=== PATIENT | female | born 1960 | race Caucasian/White ===

== ENCOUNTER 2017-03-02 20:50 | Emergency (ER) | payer OTHER, SELFPAY ==
[2017-03-02 20:51] VITALS: BMI 24.7
[2017-03-02 21:12] VITALS: RESP 16; TEMP 98.1
[2017-03-02] MEDS ORDERED: Sodium Chloride 0.9% 1,000 ML IV STA (21:31)
--- NOTE | 2017-03-02 21:36 | ED PDOC ---
HPI: General Adult Time Seen by Provider: 03/02/17 21:19 Chief Complaint (Nursing): Cough, Cold, Congestion Chief Complaint (Provider): Coughing up blood History Per: Patient, Family History/Exam Limitations: no limitations Onset/Duration Of Symptoms: Hrs Have you had recent travel within the past 21 days to any of the following countries: [place], [place], [place] or [place]?: No Current Symptoms Are (Timing): Still Present Additional Complaint(s): 57 yo female with history of colon CA 5 years ago states today she began coughing up blood one hour ago. Pt states she feels nauseous and the blood is making her cough to get it out. Pt reports similar episode 1 week ago which lasted one day. Pt denies abdominal pain, chest pain or SOB. Pt denies NSAID use. Pt denies recent travel or calf pain. No fever/chills. Pt states she has not had any URI symptoms. PT states she was having a routine colonoscopy when she was diagnosed CA and was not having symptoms at the time. Past Medical History Vital Signs: Last Vital Signs Temp 98.1 F 03/02/17 21:09 Pulse 85 03/02/17 21:09 Resp 16 03/02/17 21:09 BP 118/84 03/02/17 21:09 Pulse Ox 96 03/02/17 21:36 - Medical History PMH: Denies: Chronic Kidney Disease - Surgical History Surgical History: Endoscopy - Family History Family History: States: No Known Family Hx - Home Medications Home Medications: Ambulatory Orders Medication Instructions Recorded No Known Home Med 03/03/17 - Allergies Allergies/Adverse Reactions: Allergies Allergy/AdvReac Type Severity Reaction Status Date / Time No Known Allergies Allergy Verified 11/23/15 12:23 - Laboratory Results Result Diagrams: 03/02/17 22:41 03/02/17 22:41 - ECG O2 Sat by Pulse Oximetry: 96 Medical Decision Making Medical Decision Making: CT abdomen, pelvis, chest normal. Copy given to patient. Disposition - Clinical Impression Clinical Impression: Hemoptysis - Patient ED Disposition Is Patient to be Admitted: No Counseled Patient/Family Regarding: Diagnosis, Need For Followup - Disposition Referrals: [facility] [Outside] Disposition: Routine/Home Disposition Time: 01:36 Condition: GOOD Instructions: Hemoptysis (ED) Print Language: LIBERIAN
[2017-03-02 22:43] LABS: HEMATOCRIT 34.7 % (34.0-47.0); MEAN CELL VOLUME 91.8 fl (81.0-99.0); MEAN CORPUSCULAR HEMOGLOBIN 30.3 pg (27.0-31.0); RED CELL DISTRIBUTION WIDTH 13.4 % (11.5-14.5); WHITE BLOOD COUNT 4.9 K/uL (4.8-10.8)
[2017-03-02 22:58] LABS: ALB/GLOB RATIO 1.3 (1.0-2.1); ALKALINE PHOSPHATASE 111 U/L (38-126); ALT/SGPT 28 U/L (9-52); AST/SGOT 24 U/L (14-36); BILIRUBIN,TOTAL 0.4 mg/dl (0.2-1.3); BLOOD UREA NITROGEN 17 mg/dl (7-17); CALCIUM 9.2 mg/dL (8.4-10.2); CARBON DIOXIDE 25 mmol/L (22-30); CHLORIDE 104 mmol/L (98-107); GFR AFRICAN-AMERICAN > 60; GLUCOSE,RANDOM 104 mg/dL (65-105); POTASSIUM 3.9 MMOL/L (3.6-5.0); SODIUM 143 mmol/l (132-148)
[2017-03-02 23:05] LABS: PARTIAL THROMBOPLASTIN TIME 28.2 SECONDS (23.3-32.5)
[2017-03-03] MEDS ORDERED: Iohexol 300 50 ML ONE (00:12)
[2017-03-03] MEDS ORDERED: Sodium Chloride 0.9% 50 ML IV ONE (00:12)
--- NOTE | 2017-03-03 01:11 | CT ---
EXAM: CT Abdomen and Pelvis With Intravenous Contrast CLINICAL HISTORY: 57 years old, female; Signs and symptoms; Other: Coughing blood; Symptoms not specified; Additional info: Hemoptysis. Colon ca TECHNIQUE: Axial computed tomography images of the abdomen and pelvis with intravenous contrast. This CT exam was performed using one or more of the following dose reduction techniques: automated exposure control, adjustment of the mA and/or kV according to patient size, and/or use of iterative reconstruction technique. Coronal and sagittal reformatted images were created and reviewed. CONTRAST: 90 mL of [id number] administered intravenously. COMPARISON: No relevant prior studies available. FINDINGS: Lower thorax: The bilateral lung bases are clear. ABDOMEN: Liver: No acute findings. Gallbladder and bile ducts: The gallbladder is decompressed. No calcified stones. No significant intra- or extrahepatic biliary ductal dilation. Pancreas: Enhances homogeneously. No ductal dilation. No discrete mass. Spleen: No acute findings. Adrenals: No acute findings. Kidneys and ureters: No acute findings. No hydronephrosis or renal calculi. No discrete solid mass. PELVIS: Bladder: No acute findings. Reproductive: No acute findings. Appendix: The air filled appendix is of normal caliber (series 9, image 62) . ABDOMEN and PELVIS: Stomach and bowel: No obstruction. No mucosal thickening. An enteric staple line is identified within the rectum. Peritoneum: No significant fluid collection. No free air. Lymph nodes: No pathologically enlarged lymph nodes. Vasculature: Unremarkable. Bones: No acute fracture. IMPRESSION: Postoperative changes within the colon. Normal appendix. Otherwise unremarkable contrast enhanced CT examination of the abdomen and pelvis, as detailed above. EXAM: CT Chest With Intravenous Contrast CLINICAL HISTORY: 57 years old, female; Signs and symptoms; Other: Coughing blood; Symptoms not specified; Additional info: Hemoptysis. Colon ca TECHNIQUE: Axial computed tomography images of the chest with intravenous contrast. This CT exam was performed using one or more of the following dose reduction techniques: automated exposure control, adjustment of the mA and/or kV according to patient size, and/or use of iterative reconstruction technique. Coronal and sagittal reformatted images were created and reviewed. CONTRAST: 90 mL of [id number] administered intravenously. COMPARISON: CT - ABD PELVIS PO IV CONTRAST 03/14/2016 1:18:36 PM FINDINGS: Irregular vascularity is identified coursing between the superior vena cava to what is likely the left internal mammary vein, extending just under the aortic arch and anterior to the trachea at the level of the zak. Pulmonary arteries: No pulmonary embolism. Aorta: No thoracic aortic aneurysm. Lungs: No mass. No consolidation. Pleural spaces: No significant effusion. No pneumothorax. Heart: No cardiomegaly. No significant pericardial effusion. No evidence of right heart dysfunction. Bones: No acute fracture. Lymph nodes: No pathologically enlarged lymph nodes. IMPRESSION: No pulmonary embolism. Irregular vascularity, between the superior vena cava and the left internal mammary vein, extending under the aortic arch and anterior to the trachea at the level of the zak.
[2017-03-03 01:52] VITALS: BP 125/80; PULSE 75; O2SAT 100
--- NOTE | 2017-03-03 11:14 | RAD ---
HISTORY: hemoptysis COMPARISON: CT chest, abdomen, and pelvis performed 03/03/17, chest x-ray performed 10/12/11 TECHNIQUE: Chest PA and lateral FINDINGS: LUNGS: Mild biapical pleural thickeningNo focal consolidation. Please note that chest x-ray has limited sensitivity for the detection of pulmonary masses. PLEURA: No significant pleural effusion identified. No definite pneumothorax . CARDIOVASCULAR: Heart size appears within normal limits. OSSEOUS STRUCTURES: Scoliosis. VISUALIZED UPPER ABDOMEN: Unremarkable. OTHER FINDINGS: None. IMPRESSION: No focal consolidation, significant pleural effusion, or definite pneumothorax identified.
--- NOTE | 2017-03-03 16:02 | CARD ---
APPROVED REPORT EKG Measurement Heart [id number] <Conclusion> Sinus rhythm with 1st degree AV block Otherwise normal ECG
== END 2017-03-03 01:53 | disposition home or self-care (01) ==
LOC: H.ER 20:50
DX: R04.2 Hemoptysis (principal); C18.9 Malignant neoplasm of colon, unspecified

== ENCOUNTER 2017-03-27 09:46 | Day surgery (SDC) | payer OTHER ==
[2017-03-27] MEDS ORDERED: Lactated Ringer's 500 ML IV ONE (10:10)
[2017-03-27] MEDS ORDERED: Propofol 10 mg/ml Inj (20 ML) ONE (11:09)
[2017-03-27 11:36] VITALS: TEMP 98
[2017-03-27 11:55] VITALS: BP 107/43; PULSE 73; RESP 21; O2SAT 98
== END 2017-03-27 12:41 | disposition home or self-care (01) ==
LOC: H.ENDO 09:46
PROVIDERS: ATTEND Internal Medicine Gastroenterology
DX: K31.9 Disease of stomach and duodenum, unspecified (principal); K92.0 Hematemesis

== ENCOUNTER 2017-04-04 17:49 | Observation (INO) | payer OTHER ==
[2017-04-04] MEDS ORDERED: Sodium Chloride 0.9% 500 ML IV STA (20:28)
[2017-04-04 20:41] LABS: BASO % 0.4 % (0.0-2.0); EOS # 0.1 K/uL (0.0-0.7); EOS % 1.9 % (0.0-4.0); HEMATOCRIT 32.5 % (34.0-47.0); LYMPH # 1.2 K/uL (1.0-4.3); LYMPH % 23.7 % (20.0-40.0); MEAN CORPUSCULAR HEMOGLOBIN 30.3 pg (27.0-31.0); MEAN CORPUSCULAR HGB CONC 33.2 g/dL (33.0-37.0); MEAN PLATELET VOLUME 10.4 fl (7.2-11.7); MONO # 0.4 K/uL (0.0-0.8); MONO % 7.9 % (0.0-10.0); NEUT # 3.2 K/uL (1.8-7.0); NEUT % 66.1 % (50.0-75.0); RED CELL DISTRIBUTION WIDTH 12.9 % (11.5-14.5); WHITE BLOOD COUNT 4.9 K/uL (4.8-10.8)
[2017-04-04 20:57] LABS: ALB/GLOB RATIO 1.5 (1.0-2.1); ALKALINE PHOSPHATASE 72 U/L (38-126); ALT/SGPT 29 U/L (9-52); AST/SGOT 26 U/L (14-36); BILIRUBIN,TOTAL 1.3 mg/dl (0.2-1.3); BLOOD UREA NITROGEN 8 mg/dl (7-17); CALCIUM 9.1 mg/dL (8.4-10.2); CARBON DIOXIDE 23 mmol/L (22-30); CHLORIDE 93 mmol/L (98-107); GFR AFRICAN-AMERICAN > 60; GLUCOSE,RANDOM 110 mg/dL (65-105); LIPASE 48 U/L (23-300); MAGNESIUM 2.1 MG/DL (1.6-2.3); PHOSPHOROUS 4.3 mg/dl (2.5-4.5); POTASSIUM 3.6 MMOL/L (3.6-5.0); SODIUM 128 mmol/l (132-148); TOTAL PROTEIN 7.5 G/DL (6.3-8.2)
[2017-04-04 21:45] LABS: PARTIAL THROMBOPLASTIN TIME 29.7 SECONDS (23.3-32.5)
--- NOTE | 2017-04-04 22:28 | ED PDOC ---
HPI:Nausea, Vomiting, Diarrhea Time Seen by Provider: 04/04/17 19:52 Chief Complaint (Nursing): Abdominal Pain Chief Complaint (Provider): vomiting History Per: Patient History/Exam Limitations: no limitations Onset/Duration Of Symptoms: Days (1) Current Symptoms Are (Timing): Still Present Associated Symptoms: Chills, Nausea (started 2 days ago), Vomiting (4 times nonbloody nonbilious), Loss Of Appetite, Chest Pain. denies: Fever, Diarrhea, Back Pain, Constipation, Urinary Symptoms Exacerbating Factors: None Alleviating Factors: None Additional Complaint(s): Pt reports nausea for 2 days. then started vomiting today. Nonbilious nonbloody. NO diarrhea. Taking only meds for constipation. +epigastric pain Had endoscopy 1 week ago and does not know results. Past Medical History Reviewed: Historical Data, Nursing Documentation, Vital Signs Vital Signs: Last Vital Signs Temp 97.8 F 04/04/17 19:16 Pulse 65 04/04/17 19:16 Resp 16 04/04/17 19:16 BP 134/70 04/04/17 19:16 Pulse Ox 100 04/04/17 19:16 - Medical History PMH: Gastritis Denies: Chronic Kidney Disease Other PMH: Colon ca, completed treatment 5 years ago - Surgical History Surgical History: Endoscopy Other surgeries: Partial colon surgery - Family History Family History: States: Hypertension - Social History Current smoker - smoking cessation education provided: No Alcohol: None - Home Medications Home Medications: Ambulatory Orders Medication Instructions Recorded No Known Home Med 03/03/17 - Allergies Allergies/Adverse Reactions: Allergies Allergy/AdvReac Type Severity Reaction Status Date / Time No Known Allergies Allergy Verified 04/04/17 19:15 Review of Systems ROS Statement: Except As Marked, All Systems Reviewed And Found Negative (and as per HPI) Constitutional: Positive for: Chills, Weakness. Negative for: Fever Respiratory: Positive for: SOB with Exertion Gastrointestinal: Positive for: Nausea, Vomiting, Abdominal Pain. Negative for : Diarrhea, Constipation, Melena, Hematochezia, Hematemesis Genitourinary Female: Negative for: Dysuria, Hematuria Skin: Positive for: Other (pale) Physical Exam - Reviewed Nursing Documentation Reviewed: Yes Vital Signs Reviewed: Yes - Physical Exam Appears: Positive for: Non-toxic, Uncomfortable, In Acute Distress (mild painful ) Head Exam: Positive for: ATRAUMATIC, NORMOCEPHALIC Skin: Positive for: Warm, Dry, Pallor Eye Exam: Positive for: EOMI, PERRL ENT: Positive for: Other (tacky muc memb). Negative for: Pharyngeal Erythema, Tonsillar Exudate Neck: Positive for: Painless ROM, Supple Cardiovascular/Chest: Positive for: Regular Rate, Rhythm. Negative for: Murmur Respiratory: Positive for: Normal Breath Sounds. Negative for: Wheezing Gastrointestinal/Abdominal: Positive for: Bowel Sounds, Soft, Tenderness ( epigastric). Negative for: Mass, Distended, Guarding, Rebound Back: Positive for: Normal Inspection. Negative for: Vertebral Tenderness Extremity: Positive for: Normal ROM. Negative for: Pedal Edema Lymphatic: Negative for: Adenopathy Neurologic/Psych: Positive for: Alert. Negative for: Motor/Sensory Deficits - Laboratory Results Result Diagrams: 04/04/17 20:30 04/04/17 20:30 - ECG ECG: Positive for: Interpreted By Me ECG Rhythm: Positive for: Normal QRS, Normal ST Segment, Sinus Rhythm O2 Sat by Pulse Oximetry: 100 Pulse Ox Interpretation: Normal - Other Rad Obs series X-Ray: Interpreted by Me (NSBGP, no dilated bowel) - Progress ED Course And Treament: Reviewed recent endoscopy report (03/27) "Impression: Normal esophagus. Erythematous mucosa in the antrum. Biopsied. Normal examined duodenum." Reviewed pathology report of biopsy "Final diagnosis. Biopsy antrum. Gastic mucosa shows mild chronic gastritis. Immunostain for Helicobacter pylori is negative." Pt's lab demonstrated moderate hyponatremia. Pt to be hospitalizaed for continued IVF and bowel rest. Disposition - Clinical Impression Clinical Impression: Vomiting, Hyponatremia Discussed With : Kimberly Jose Doctor Will See Patient In The: ED Counseled Patient/Family Regarding: Studies Performed, Diagnosis - Disposition Disposition Time: 22:30 Condition: GUARDED - Pt Status Changed To: Hospital Disposition Of: Observation - POA Present On Arrival: None
--- NOTE | 2017-04-04 23:10 | CP.PCM.HP ---
<Kimberly Jose - Last Filed: 04/05/17 05:55> History of Present Illness - History of Present Illness History of Present Illness: 57yo F with PMHx colon ca (s/p colectomy) and GERD admitted for hyponatremia and nausea/vomiting. nausea/vomiting x2 days, NB/NB vomitus 4x daily, decreased PO intake, a/w epigastric pain. Denies fever, chills, constipation, diarrhea. Last BM today, denies hematochezia. No new food, no sick contacts, no trigger. PMHx: as above SHx: colectomy 5 years ago Allergies: NKDA Social hx: denies smoking, EtOH, drugs FHx: NC Meds: checked in [facility] and with pt PCP: Dr. Flower ED course: VSS, no tachycardia, afebrile CBC, no leukocytosis CMP, Na 128 lipase WNL troponin WNL EKG Abd Xray - stool (my interp) zofran 8mg IV pepcid 20mg IV NS 500cc bolus Present on Admission - Present on Admission Any Indicators Present on Admission: No Review of Systems - Constitutional Constitutional: absent: Chills, Fever - Cardiovascular Cardiovascular: absent: Chest Pain - Respiratory Respiratory: absent: Dyspnea - Gastrointestinal Gastrointestinal: Abdominal Pain (epigastric), Nausea, Vomiting. absent: Constipation, Diarrhea, Hematemesis, Hematochezia - Genitourinary Genitourinary: absent: Dysuria, Hematuria - Musculoskeletal Musculoskeletal: absent: Back Pain - Neurological Neurological: absent: Headaches Past Patient History - Past Medical History & Family History Past Medical History?: Yes - Past Social History Smoking Status: Never Smoked Alcohol: None Drugs: Denies - CARDIAC Hx Cardiac Disorders: No - PULMONARY Hx Respiratory Disorders: No - NEUROLOGICAL Hx Neurological Disorder: No - HEENT Hx HEENT Problems: No - RENAL Hx Chronic Kidney Disease: No - ENDOCRINE/METABOLIC Hx Endocrine Disorders: No - HEMATOLOGICAL/ONCOLOGICAL Hx Cancer: Yes (CHEMO) - INTEGUMENTARY Hx Dermatological Problems: No - MUSCULOSKELETAL/RHEUMATOLOGICAL Hx Musculoskeletal Disorders: No - GASTROINTESTINAL Hx Gastrointestinal Disorders: Yes - GENITOURINARY/GYNECOLOGICAL Hx Genitourinary Disorders: No - PSYCHIATRIC Hx Psychophysiologic Disorder: No Hx Emotional Abuse: No Hx Physical Abuse: No - SURGICAL HISTORY Other/Comment: COLON RESECTION - ANESTHESIA Hx Anesthesia: Yes Hx Anesthesia Reactions: No Hx Malignant Hyperthermia: No Meds Allergies/Adverse Reactions: Allergies Allergy/AdvReac Type Severity Reaction Status Date / Time No Known Allergies Allergy Verified 04/04/17 19:15 Physical Exam - Head Exam Head Exam: ATRAUMATIC, NORMAL INSPECTION - Eye Exam Eye Exam: Normal appearance - ENT Exam ENT Exam: Mucous Membranes Dry - Neck Exam Neck exam: Positive for: Normal Inspection - Respiratory Exam Respiratory Exam: Clear to Auscultation Bilateral - Cardiovascular Exam Cardiovascular Exam: REGULAR RHYTHM - GI/Abdominal Exam GI & Abdominal Exam: Distended, Soft, Tenderness (epigastric). absent: Guarding , Organomegaly, Rigid - Extremities Exam Extremities exam: Positive for: normal inspection. Negative for: pedal edema - Back Exam Back exam: NORMAL INSPECTION - Neurological Exam Neurological exam: Alert, Oriented x3 - Skin Skin Exam: Dry, Warm Results - Vital Signs Recent Vital Signs: Last Vital Signs Temp 97.8 F 04/04/17 19:16 Pulse 65 04/04/17 19:16 Resp 16 04/04/17 19:16 BP 134/70 04/04/17 19:16 Pulse Ox 100 04/04/17 22:28 - Labs Result Diagrams: 04/04/17 20:30 04/04/17 20:30 Assessment & Plan - Assessment and Plan (Free Text) Assessment: 57yo F with PMHx colon ca (s/p colectomy) and GERD admitted for hyponatremia and nausea/vomiting. nausea/vomiting -no tachycardia, afebrile, no leukocytosis -Abd Xray - stool (my interp) -zofran 4mg IV q6hr -pepcid 20mg IV daily -MIVF NS 125cc/hr -advance diet as tolerated hyponatremia -Na+ 128 -MIVF NS 125cc/hr -increase Na+ by <6mEq in 24hr DVT ppx -lovenox Decision To Admit - Pt Status Changed To: Hospital Disposition Of: Observation - . Bed Request Type: Telemetry Admitting Physician: Lissa Roper <Lissa Roper - Last Filed: 04/05/17 09:16> Results - Vital Signs Recent Vital Signs: Last Vital Signs Temp 97.4 F L 04/05/17 08:00 Pulse 70 04/05/17 08:00 Resp 16 04/05/17 08:00 BP 104/62 04/05/17 08:00 Pulse Ox 98 04/05/17 08:00 - Labs Result Diagrams: 04/05/17 06:00 04/05/17 06:20 Labs: Laboratory Results - last 24 hr 04/05/17 04/05/17 06:00 06:20 WBC 3.8 L RBC 3.76 L Hgb 11.5 L Hct 34.5 MCV 91.7 MCH 30.5 MCHC 33.3 RDW 13.1 Plt Count 181 MPV 10.2 Neut % (Auto) 62.1 Lymph % (Auto) 26.1 [place] % (Auto) 8.4 Eos % (Auto) 3.1 Baso % (Auto) 0.3 Neut # 2.4 Lymph # 1.0 [place] # 0.3 Eos # 0.1 Baso # 0.0 Sodium 140 Potassium 4.1 Chloride 106 Carbon Dioxide 25 Anion Gap 14 BUN 6 L Creatinine 0.6 L Est GFR ( Amer) > 60 Est GFR (Non-Af Amer) > 60 Random Glucose 95 Calcium 9.1 Total Bilirubin 1.1 AST 22 ALT 24 Alkaline Phosphatase 67 Total Protein 7.0 Albumin 4.1 Globulin 2.9 Albumin/Globulin Ratio 1.4 Assessment & Plan - Assessment and Plan (Free Text) Assessment: ATTENDING NOTE/ ATTESTATION STATEMENT Case discussed with resident. Chart reviewed. Agree with plan - rehydrate, zofran. Admit to OBS. status, reevaluate in AM
[2017-04-04 23:24] VITALS: BMI 25.1
[2017-04-04] MEDS: Sodium Chloride 0.9% 1,000 ML IV SCH (23:41)
[2017-04-05] MEDS: Sodium Chloride 0.9% 1,000 ML IV SCH (06:20)
[2017-04-05 07:51] LABS: ALB/GLOB RATIO 1.4 (1.0-2.1); ALKALINE PHOSPHATASE 67 U/L (38-126); ALT/SGPT 24 U/L (9-52); AST/SGOT 22 U/L (14-36); BILIRUBIN,TOTAL 1.1 mg/dl (0.2-1.3); BLOOD UREA NITROGEN 6 mg/dl (7-17); CALCIUM 9.1 mg/dL (8.4-10.2); CARBON DIOXIDE 25 mmol/L (22-30); CHLORIDE 106 mmol/L (98-107); GFR AFRICAN-AMERICAN > 60; GLUCOSE,RANDOM 95 mg/dL (65-105); POTASSIUM 4.1 MMOL/L (3.6-5.0); SODIUM 140 mmol/l (132-148)
[2017-04-05 08:01] VITALS: O2SAT 98
[2017-04-05 08:48] LABS: BASO % 0.3 % (0.0-2.0); EOS # 0.1 K/uL (0.0-0.7); EOS % 3.1 % (0.0-4.0); HEMATOCRIT 34.5 % (34.0-47.0); LYMPH % 26.1 % (20.0-40.0); MEAN CELL VOLUME 91.7 fl (81.0-99.0); MEAN CORPUSCULAR HEMOGLOBIN 30.5 pg (27.0-31.0); MEAN CORPUSCULAR HGB CONC 33.3 g/dL (33.0-37.0); MEAN PLATELET VOLUME 10.2 fl (7.2-11.7); MONO # 0.3 K/uL (0.0-0.8); MONO % 8.4 % (0.0-10.0); NEUT # 2.4 K/uL (1.8-7.0); NEUT % 62.1 % (50.0-75.0); NRBC % 0.1 % (0.0-0.0); RED CELL DISTRIBUTION WIDTH 13.1 % (11.5-14.5); WHITE BLOOD COUNT 3.8 K/uL (4.8-10.8)
[2017-04-05] MEDS ORDERED: Enoxaparin 40 mg Syringe SC SCH (09:00)
--- NOTE | 2017-04-05 09:57 | RAD ---
PROCEDURE: Radiographs of the chest and abdomen (obstructive series) HISTORY: abd pain r/o sbo COMPARISON: CT chest, abdomen, and pelvis performed 03/03/17 TECHNIQUE: AP radiograph of the chest, with upright and supine radiographs of the abdomen. FINDINGS: CHEST: Cardiomediastinal silhouette appears within normal limits of size. No focal consolidation, significant pleural effusion, or definite pneumothorax identified.Please note that chest x-ray has limited sensitivity for the detection of pulmonary masses. Marked scoliosis of the thoracic spine convex to the right. ABDOMEN AND PELVIS: Nonspecific bowel gas pattern without findings to suggest obstruction. Bowel anastomotic suture material within the pelvis. Mild constipation. No acute osseous abnormality is detected. IMPRESSION: Mild constipation.
--- NOTE | 2017-04-05 12:44 | CP.PCM.DIS ---
<Lora Keane - Last Filed: 04/05/17 19:56> Provider - Provider Date of Admission: 04/04/17 22:21 Attending physician: Trina Alan MD Time Spent in preparation of Discharge (in minutes): 30 Diagnosis - Discharge Diagnosis (1) Hyponatremia Status: Acute Comment: resolved. (2) Gastritis Status: Acute Comment: pepcid BID. zofran PRN nauseas. F/U as outpatient. Hospital Course - Lab Results Lab Results: Most Recent Lab Values WBC 3.8 K/uL (4.8-10.8) L 04/05/17 06:00 RBC 3.76 Mil/uL (3.80-5.20) L 04/05/17 06:00 Hgb 11.5 g/dL (12.0-16.0) L 04/05/17 06:00 Hct 34.5 % (34.0-47.0) 04/05/17 06:00 MCV 91.7 fl (81.0-99.0) 04/05/17 06:00 MCH 30.5 pg (27.0-31.0) 04/05/17 06:00 MCHC 33.3 g/dL (33.0-37.0) 04/05/17 06:00 RDW 13.1 % (11.5-14.5) 04/05/17 06:00 Plt Count 181 K/uL (130-400) 04/05/17 06:00 MPV 10.2 fl (7.2-11.7) 04/05/17 06:00 Neut % (Auto) 62.1 % (50.0-75.0) 04/05/17 06:00 Lymph % (Auto) 26.1 % (20.0-40.0) 04/05/17 06:00 [place] % (Auto) 8.4 % (0.0-10.0) 04/05/17 06:00 Eos % (Auto) 3.1 % (0.0-4.0) 04/05/17 06:00 Baso % (Auto) 0.3 % (0.0-2.0) 04/05/17 06:00 Neut # 2.4 K/uL (1.8-7.0) 04/05/17 06:00 Lymph # 1.0 K/uL (1.0-4.3) 04/05/17 06:00 [place] # 0.3 K/uL (0.0-0.8) 04/05/17 06:00 Eos # 0.1 K/uL (0.0-0.7) 04/05/17 06:00 Baso # 0.0 K/uL (0.0-0.2) 04/05/17 06:00 PT 10.7 SECONDS (9.6-11.2) 04/04/17 20:30 INR 1.03 (0.92-1.08) 04/04/17 20:30 APTT 29.7 SECONDS (23.3-32.5) 04/04/17 20:30 Sodium 140 mmol/l (132-148) 04/05/17 06:20 Potassium 4.1 MMOL/L (3.6-5.0) 04/05/17 06:20 Chloride 106 mmol/L (98-107) 04/05/17 06:20 Carbon Dioxide 25 mmol/L (22-30) 04/05/17 06:20 Anion Gap 14 (10-20) 04/05/17 06:20 BUN 6 mg/dl (7-17) L 04/05/17 06:20 Creatinine 0.6 mg/dL (0.7-1.2) L 04/05/17 06:20 Est GFR ( Amer) > 60 04/05/17 06:20 Est GFR (Non-Af Amer) > 60 04/05/17 06:20 Random Glucose 95 mg/dL (65-105) 04/05/17 06:20 Calcium 9.1 mg/dL (8.4-10.2) 04/05/17 06:20 Phosphorus 4.3 mg/dl (2.5-4.5) 04/04/17 20:30 Magnesium 2.1 MG/DL (1.6-2.3) 04/04/17 20:30 Total Bilirubin 1.1 mg/dl (0.2-1.3) 04/05/17 06:20 AST 22 U/L (14-36) 04/05/17 06:20 ALT 24 U/L (9-52) 04/05/17 06:20 Alkaline Phosphatase 67 U/L (38-126) 04/05/17 06:20 Troponin I < 0.0120 ng/mL (0.00-0.120) 04/04/17 20:30 Total Protein 7.0 G/DL (6.3-8.2) 04/05/17 06:20 Albumin 4.1 g/dL (3.5-5.0) 04/05/17 06:20 Globulin 2.9 gm/dL (2.2-3.9) 04/05/17 06:20 Albumin/Globulin Ratio 1.4 (1.0-2.1) 04/05/17 06:20 Lipase 48 U/L (23-300) 04/04/17 20:30 - Hospital Course Hospital Course: 57yo F with PMHx colon ca (s/p colectomy) and GERD admitted for hyponatremia and nausea/vomiting. nausea/vomiting x2 days, NB/NB vomitus 4x daily, decreased PO intake, a/w burning epigastric pain. Pt was treated w/ IV fluids, pepcid and zofran, feeling better today, no more vomits, hyponatremia resolved. will d/c patient home w/ Pepcid, F/U w/ PMD in 1-2 weeks. ER precautions given to pt. Pt had an elective EGD last week: Pathology results reviewed: mild chronic gastritis, no H.Pylori. Discharge Exam - Head Exam Head Exam: ATRAUMATIC, NORMAL INSPECTION - Additional Findings Additional findings: - Head Exam Head Exam: ATRAUMATIC, NORMAL INSPECTION - Eye Exam Eye Exam: Normal appearance - ENT Exam ENT Exam: Mucous Membranes Dry - Neck Exam Neck exam: Positive for: Normal Inspection - Respiratory Exam Respiratory Exam: Clear to Auscultation Bilateral - Cardiovascular Exam Cardiovascular Exam: REGULAR RHYTHM - GI/Abdominal Exam GI & Abdominal Exam: Distended, Soft, Tenderness (epigastric). absent: Guarding , Organomegaly, Rigid - Extremities Exam Extremities exam: Positive for: normal inspection. Negative for: pedal edema - Back Exam Back exam: NORMAL INSPECTION - Neurological Exam Neurological exam: Alert, Oriented x3 - Skin Skin Exam: Dry, Warm Discharge Plan - Discharge Medications Prescriptions: Famotidine [Pepcid] 20 mg PO BID #40 tab Ondansetron HCl [Zofran] 4 mg PO Q6 PRN #15 tablet PRN Reason: Nausea/Vomiting - Follow Up Plan Condition: GUARDED Disposition: HOME/ ROUTINE Instructions: Dehydration (DC), Hyponatremia (DC) Additional Instructions: F/U with PMD in 1-2 weeks. ER precautions given to pt. Pt verbalized understanding. <Lissa Roper - Last Filed: 04/06/17 08:50> Provider - Provider Date of Admission: 04/04/17 22:21 Attending physician: Trina Alan MD Hospital Course - Lab Results Lab Results: Most Recent Lab Values WBC 3.8 K/uL (4.8-10.8) L 04/05/17 06:00 RBC 3.76 Mil/uL (3.80-5.20) L 04/05/17 06:00 Hgb 11.5 g/dL (12.0-16.0) L 04/05/17 06:00 Hct 34.5 % (34.0-47.0) 04/05/17 06:00 MCV 91.7 fl (81.0-99.0) 04/05/17 06:00 MCH 30.5 pg (27.0-31.0) 04/05/17 06:00 MCHC 33.3 g/dL (33.0-37.0) 04/05/17 06:00 RDW 13.1 % (11.5-14.5) 04/05/17 06:00 Plt Count 181 K/uL (130-400) 04/05/17 06:00 MPV 10.2 fl (7.2-11.7) 04/05/17 06:00 Neut % (Auto) 62.1 % (50.0-75.0) 04/05/17 06:00 Lymph % (Auto) 26.1 % (20.0-40.0) 04/05/17 06:00 [place] % (Auto) 8.4 % (0.0-10.0) 04/05/17 06:00 Eos % (Auto) 3.1 % (0.0-4.0) 04/05/17 06:00 Baso % (Auto) 0.3 % (0.0-2.0) 04/05/17 06:00 Neut # 2.4 K/uL (1.8-7.0) 04/05/17 06:00 Lymph # 1.0 K/uL (1.0-4.3) 04/05/17 06:00 [place] # 0.3 K/uL (0.0-0.8) 04/05/17 06:00 Eos # 0.1 K/uL (0.0-0.7) 04/05/17 06:00 Baso # 0.0 K/uL (0.0-0.2) 04/05/17 06:00 PT 10.7 SECONDS (9.6-11.2) 04/04/17 20:30 INR 1.03 (0.92-1.08) 04/04/17 20:30 APTT 29.7 SECONDS (23.3-32.5) 04/04/17 20:30 Sodium 140 mmol/l (132-148) 04/05/17 06:20 Potassium 4.1 MMOL/L (3.6-5.0) 04/05/17 06:20 Chloride 106 mmol/L (98-107) 04/05/17 06:20 Carbon Dioxide 25 mmol/L (22-30) 04/05/17 06:20 Anion Gap 14 (10-20) 04/05/17 06:20 BUN 6 mg/dl (7-17) L 04/05/17 06:20 Creatinine 0.6 mg/dL (0.7-1.2) L 04/05/17 06:20 Est GFR ( Amer) > 60 04/05/17 06:20 Est GFR (Non-Af Amer) > 60 04/05/17 06:20 Random Glucose 95 mg/dL (65-105) 04/05/17 06:20 Calcium 9.1 mg/dL (8.4-10.2) 04/05/17 06:20 Phosphorus 4.3 mg/dl (2.5-4.5) 04/04/17 20:30 Magnesium 2.1 MG/DL (1.6-2.3) 04/04/17 20:30 Total Bilirubin 1.1 mg/dl (0.2-1.3) 04/05/17 06:20 AST 22 U/L (14-36) 04/05/17 06:20 ALT 24 U/L (9-52) 04/05/17 06:20 Alkaline Phosphatase 67 U/L (38-126) 04/05/17 06:20 Troponin I < 0.0120 ng/mL (0.00-0.120) 04/04/17 20:30 Total Protein 7.0 G/DL (6.3-8.2) 04/05/17 06:20 Albumin 4.1 g/dL (3.5-5.0) 04/05/17 06:20 Globulin 2.9 gm/dL (2.2-3.9) 04/05/17 06:20 Albumin/Globulin Ratio 1.4 (1.0-2.1) 04/05/17 06:20 Lipase 48 U/L (23-300) 04/04/17 20:30 - Hospital Course Hospital Course: ATTENDING NOTE/ ATTESTATION Patient seen and examined. case discussed with resident. Agree with plan, discharge on meds to outpatient follow up.
[2017-04-05 12:48] VITALS: BP 98/63; PULSE 63; RESP 18; TEMP 98.2
--- NOTE | 2017-04-05 13:25 | CARD ---
APPROVED REPORT EKG Measurement Heart [id number] NM [id number] <Conclusion> Sinus bradycardia with 1st degree AV block RSR' or QR pattern in V1 suggests right ventricular conduction delay Borderline ECG
== END 2017-04-05 13:14 | disposition home or self-care (01) ==
LOC: H.ER 17:49 → H.ERHOLD 22:21 → H.TEL 04-05 01:02
PROVIDERS: ADMIT Family Medicine Geriatric Medicine; ATTEND Family Medicine Geriatric Medicine
DX: E87.1 Hypo-osmolality and hyponatremia (principal); K21.9 Gastro-esophageal reflux disease without esophagitis; K29.50 Unspecified chronic gastritis without bleeding; K59.00 Constipation, unspecified; Z85.038 Personal history of other malignant neoplasm of large intestine

== ENCOUNTER 2018-04-23 11:52 | Day surgery (SDC) | payer OTHER ==
[2018-04-23] MEDS ORDERED: Lactated Ringer's 500 ML IV ONE (13:28)
[2018-04-23 13:45] VITALS: O2SAT 100
[2018-04-23] MEDS ORDERED: Propofol 10 mg/ml Inj (20 ML) ONE (15:17)
[2018-04-23 15:44] VITALS: TEMP 97
[2018-04-23 15:56] VITALS: BP 94/49; PULSE 58; RESP 18
== END 2018-04-23 16:17 | disposition home or self-care (01) ==
LOC: H.ENDO 11:52
PROVIDERS: ATTEND Internal Medicine Gastroenterology
DX: K62.5 Hemorrhage of anus and rectum (principal); D12.5 Benign neoplasm of sigmoid colon; D12.3 Benign neoplasm of transverse colon; D12.2 Benign neoplasm of ascending colon; K63.89 Other specified diseases of intestine
CPT/HCPCS: 45380; J2001; J2704; J7120

== ENCOUNTER 2018-08-24 18:55 | Emergency (ER) | payer SELFPAY ==
[2018-08-24 18:55] VITALS: BMI 25.1
[2018-08-24 19:06] VITALS: BP 116/66; PULSE 86; RESP 18; TEMP 99.2; O2SAT 100
[2018-08-24] MEDS ORDERED: Sodium Chloride 0.9% 1,000 ML IV STA (20:56)
[2018-08-24] MEDS ORDERED: Albuterol-Ipratrop 3 mg / 0.5 (3 ml) UD IH STA (20:56)
--- NOTE | 2018-08-24 21:00 | ED PDOC ---
HPI: CCC, URI, Sore Throat Time Seen by Provider: 08/24/18 20:45 Chief Complaint (Nursing): Cough, Cold, Congestion Chief Complaint (Provider): cough History Per: Patient, Family (son) History/Exam Limitations: no limitations Onset/Duration Of Symptoms: Days (1 week) Current Symptoms Are (Timing): Still Present Additional Complaint(s): 58 y/o female presents for evaluation of persistent cough x 1 week. Associated white sputum production. Patient reports back pain from excessive coughing, and today with post-tussive vomiting episodes. Denies fever, headache, dizziness, chest pain, shortness of breath, palpitations, leg pain/swelling, recent travel. Son sick with similar Past Medical History Reviewed: Historical Data, Nursing Documentation, Vital Signs Vital Signs: Last Vital Signs Temp 99.2 F 08/24/18 19:02 Pulse 86 08/24/18 19:02 Resp 18 08/24/18 19:02 BP 116/66 08/24/18 19:02 Pulse Ox 100 08/24/18 19:02 - Medical History PMH: Gastritis, Malignancy (colon CA) Denies: HIV, Chronic Kidney Disease - Surgical History Surgical History: Endoscopy - Family History Family History: States: Hypertension - Home Medications Home Medications: Ambulatory Orders Medication Instructions Recorded Esomeprazole Magnesium [Nexium] 20 mg PO DAILY 04/23/18 Albuterol HFA [Ventolin HFA 90 1 puff IH Q4 PRN #1 inh 08/24/18 mcg/actuation (8 g)] Azithromycin [Zithromax] 250 mg PO DAILY #1 packet 08/24/18 Fluticasone Nasal [Flonase] 1 actuation NS BID #1 bottle 08/24/18 Prednisone 50 mg PO DAILY #4 tablet 08/24/18 Promethazine HCl/Codeine 5 ml PO Q8 PRN #50 ml 08/24/18 [Prometh-Codein 6.25-10 mg/5 ml] - Allergies Allergies/Adverse Reactions: Allergies Allergy/AdvReac Type Severity Reaction Status Date / Time No Known Allergies Allergy Verified 04/04/17 19:15 Review of Systems ROS Statement: Except As Marked, All Systems Reviewed And Found Negative Respiratory: Positive for: Cough Gastrointestinal: Positive for: Vomiting Physical Exam - Reviewed Nursing Documentation Reviewed: Yes Vital Signs Reviewed: Yes - Physical Exam Appears: Positive for: Well, Non-toxic, Uncomfortable (actively coughing) Head Exam: Positive for: ATRAUMATIC, NORMAL INSPECTION, NORMOCEPHALIC Skin: Positive for: Normal Color Eye Exam: Positive for: Normal appearance ENT: Positive for: Normal ENT Inspection Cardiovascular/Chest: Positive for: Regular Rate, Rhythm Respiratory: Positive for: Normal Breath Sounds Gastrointestinal/Abdominal: Positive for: Normal Exam Back: Positive for: Normal Inspection Extremity: Positive for: Normal ROM Neurologic/Psych: Positive for: Alert, Oriented (x3) - Laboratory Results Result Diagrams: 08/24/18 21:16 08/24/18 21:16 - ECG O2 Sat by Pulse Oximetry: 100 - Radiology X-Ray: Viewed By Nd X-Ray Interpretation: No Acute Disease - Progress ED Course And Treament: labs, chest xray, IV fluids, IV zofran, IV solumedro, duonebs On re-eval, patient states cough improved. Patient educated on findings, discharged with rx zpak, flonase, promethazine with codeine, albuterol hfa Advised fluids, rest Follow up PMD 2-3 days Return precautions given Disposition - Clinical Impression Clinical Impression: Bronchitis - Patient ED Disposition Is Patient to be Admitted: No Counseled Patient/Family Regarding: Studies Performed, Diagnosis, Need For Followup, Rx Given - Disposition Disposition: Routine/Home Disposition Time: 23:11 Condition: IMPROVED Prescriptions: Albuterol HFA [Ventolin HFA 90 mcg/actuation (8 g)] 1 puff IH Q4 PRN #1 inh PRN Reason: Wheezing Azithromycin [Zithromax] 250 mg PO DAILY #1 packet Fluticasone Nasal [Flonase] 1 actuation NS BID #1 bottle Prednisone 50 mg PO DAILY #4 tablet Promethazine HCl/Codeine [Prometh-Codein 6.25-10 mg/5 ml] 5 ml PO Q8 PRN #50 ml PRN Reason: Cough Instructions: Acute Bronchitis Print Language: [id number]
[2018-08-24 21:19] LABS: BASO # 0.1 K/uL (0.0-0.2); BASO % 0.6 % (0.0-2.0); EOS # 0.1 K/uL (0.0-0.7); HEMOGLOBIN 10.6 g/dL (12.0-16.0); LYMPH # 0.9 K/uL (1.0-4.3); LYMPH % 8.2 % (20.0-40.0); MEAN CELL VOLUME 91.2 fl (81.0-99.0); MEAN CORPUSCULAR HEMOGLOBIN 30.5 pg (27.0-31.0); MEAN CORPUSCULAR HGB CONC 33.4 g/dL (33.0-37.0); MEAN PLATELET VOLUME 8.6 fl (7.2-11.7); MONO # 0.7 K/uL (0.0-0.8); MONO % 6.2 % (0.0-10.0); NEUT # 9.5 K/uL (1.8-7.0); PLATELET COUNT 256 K/uL (130-400); RBC 3.47 Mil/uL (3.80-5.20); RED CELL DISTRIBUTION WIDTH 13.4 % (11.5-14.5); WHITE BLOOD COUNT 11.3 K/uL (4.8-10.8)
[2018-08-24] MEDS ORDERED: Albuterol-Ipratrop 3 mg / 0.5 (3 ml) UD ONE (21:37)
[2018-08-24 21:45] LABS: ALB/GLOB RATIO 1.1 (1.0-2.1); ALBUMIN 4.2 g/dL (3.5-5.0); ALT/SGPT 18 U/L (9-52); AST/SGOT 33 U/L (14-36); BLOOD UREA NITROGEN 7 mg/dl (7-17); CALCIUM 9.1 mg/dL (8.4-10.2); GFR NON-AFRICAN AMERICAN > 60
[2018-08-24 22:46] LABS: BANDS 3 % (0-2); BASOPHIL 1 % (0-2); EOSINOPHIL 1 % (0-7); LYMPHOCYTE 12 % (20-50); MONOCYTE 8 % (0-10); NEUTROPHIL 75 % (42-75); TOTAL CELLS COUNTED 100
[2018-08-24 22:47] LABS: ANISOCYTOSIS SLIGHT; PLATELET ESTIMATE NORMAL (NORMAL); POIKILOCYTOSIS SLIGHT; POLYCHROMIC SLIGHT
[2018-08-24] MEDS ORDERED: Promethazine/Cod 6.25mg-10mg/5ml Syr UD PO STA (23:07)
[2018-08-24] MEDS ORDERED: Promethazine/Cod 6.25mg-10mg/5ml Syr UD ONE (23:25)
--- NOTE | 2018-08-25 09:44 | RAD ---
Date of service: 08/24/2018 HISTORY: cough COMPARISON: Chest radiographs 03/02/2017. TECHNIQUE: Chest PA and lateral FINDINGS: LUNGS: Borderline patchy density is question in the frontal view of the right base but is not seen in the lateral projection raising question of potential early infiltrate though this is not definite. Remaining lung fatima appear clear. PLEURA: No significant pleural effusion identified. No pneumothorax apparent. CARDIOVASCULAR: Normal. OSSEOUS STRUCTURES: Dextroscoliotic thoracic spinal deformity reiterated. VISUALIZED UPPER ABDOMEN: Normal. OTHER FINDINGS: None. IMPRESSION: Potential early infiltrate right base with remaining lung fatima otherwise clear. No acute cardiovascular changes. Scoliotic spinal deformity reiterated.
== END 2018-08-24 23:19 | disposition home or self-care (01) ==
LOC: H.ER 18:55
DX: J40 Bronchitis, not specified as acute or chronic (principal); Z85.038 Personal history of other malignant neoplasm of large intestine
CPT/HCPCS: 71046; 80053; 85025; 87804; 94640; 96361; 96374; 96375; 99283; J2405; J2930; J7030

== ENCOUNTER 2018-10-28 23:46 | Inpatient (IN) | payer SELFPAY ==
[2018-10-28 23:47] VITALS: BMI 25.1
[2018-10-29] MEDS ORDERED: Morphine 4 MG/ML VIAL IVP ONE (00:14)
[2018-10-29] MEDS ORDERED: Sodium Chloride 0.9% 1,000 ML IV STA ×2 (00:14→03:51)
--- NOTE | 2018-10-29 00:34 | ED PDOC ---
HPI: Abdomen Time Seen by Provider: 10/29/18 00:01 Chief Complaint (Nursing): Abdominal Pain Chief Complaint (Provider): Abdominal Pain History Per: Patient History/Exam Limitations: no limitations Onset/Duration Of Symptoms: Hrs (4.5) Current Symptoms Are (Timing): Constant Pain Scale Rating Of: 10 Location Of Pain/Discomfort: Diffuse Associated Symptoms: Nausea, Vomiting (x2 non bloody, non bilious). denies: Chest Pain Additional Complaint(s): 58 years old female with history of colon CA s/p partial colectomy presents to ER for evaluation of a constant acute abdominal pain started at 8pm associated with nausea and non bloody, non bilious vomiting. Patient rates pain as 10/10 and reports taking Tylenol with no relief. She denies any chest pain, cough or shortness of breath. PMD: non provided Past Medical History Reviewed: Historical Data, Nursing Documentation, Vital Signs Vital Signs: Last Vital Signs Temp 97.9 F 10/28/18 23:52 Pulse 73 10/28/18 23:52 Resp 18 10/28/18 23:52 BP 138/82 10/28/18 23:52 Pulse Ox 98 10/28/18 23:52 - Medical History PMH: Gastritis, Malignancy (colon CA) Denies: HIV, Chronic Kidney Disease Other PMH: Colon CA - Surgical History Surgical History: Endoscopy, (x2) Other surgeries: Partial colectomy - Family History Family History: States: Hypertension - Home Medications Home Medications: Ambulatory Orders Medication Instructions Recorded Esomeprazole Magnesium [Nexium] 20 mg PO DAILY 04/23/18 Fluticasone Nasal [Flonase] 1 actuation NS BID #1 bottle 08/24/18 RX: Albuterol HFA [Ventolin HFA 90 1 puff IH Q4 PRN #1 inh 08/24/18 mcg/actuation (8 g)] RX: Prednisone 50 mg PO DAILY #4 tablet 08/24/18 RX: Promethazine HCl/Codeine 5 ml PO Q8 PRN #50 ml 08/24/18 [Prometh-Codein 6.25-10 mg/5 ml] - Allergies Allergies/Adverse Reactions: Allergies Allergy/AdvReac Type Severity Reaction Status Date / Time No Known Allergies Allergy Verified 04/04/17 19:15 Review of Systems ROS Statement: Except As Marked, All Systems Reviewed And Found Negative Cardiovascular: Negative for: Chest Pain Respiratory: Negative for: Cough, Shortness of Breath Gastrointestinal: Positive for: Nausea, Vomiting, Abdominal Pain Physical Exam - Reviewed Nursing Documentation Reviewed: Yes Vital Signs Reviewed: Yes - Physical Exam Appears: Positive for: Uncomfortable Head Exam: Positive for: ATRAUMATIC, NORMOCEPHALIC Skin: Positive for: Normal Color, Warm, Dry Cardiovascular/Chest: Positive for: Regular Rate, Rhythm. Negative for: Murmur Respiratory: Positive for: Normal Breath Sounds. Negative for: Wheezing Gastrointestinal/Abdominal: Positive for: Tenderness (diffused) Back: Positive for: Normal Inspection. Negative for: L CVA Tenderness, R CVA Tenderness Neurologic/Psych: Positive for: Alert, Oriented (x3) - Laboratory Results Result Diagrams: 10/29/18 00:55 10/29/18 00:53 - ECG O2 Sat by Pulse Oximetry: 98 (RA) Pulse Ox Interpretation: Normal Medical Decision Making Medical Decision Making: Time: 0013 Initial Impression: 58 y/o female with acute abdominal pain, nausea and vomiting and history of colon surgery for colon CA. Initial Plan: --Abdomen/Pelvis CT --EKG --CMP --CBC --Lactic acid --Lipase --Morphine 4 mg IVP --NaCl 1,000ml IV --Zofran 4 mg --Urinalysis 0307 Abdomen/Pelvis CT Findings: COMMENTS: Interval appearance of moderate partial small bowel obstruction. Transition zone in the right lower quadrant without perforation or abscess formation. No evidence of pneumatosis intestinalis. Mild diffuse thickening of the bladder is unchanged. Probably mild cystitis. The liver is of uniform attenuation without mass or defect. There is no intra or extrahepatic biliary ductal dilatation. The spleen is normal. The gallbladder contains a gallstone, unchanged. The pancreas is of normal contour and attenuation characteristics. There is no evidence of adrenal mass. Both kidneys demonstrate prompt and equal nephrograms. The kidneys are normal in size, shape and configuration. There is no evidence of renal or ureteral mass. No renal or ureteral calculi are identified. There is no hydroureter or hydronephrosis. No evidence for appendicitis. There is no evidence of abdominal ascites or lymphadenopathy. There is no evidence of intrinsic or extrinsic bladder mass. There is no pelvic ascites or lymphadenopathy. Images of the lung bases show no evidence of pleural or parenchymal mass. There are no pleural effusions. The bony structures are free of lytic or blastic lesions. IMPRESSION: Interval appearance of moderate partial small bowel obstruction. Transition zone in the right lower quadrant without perforation or abscess formation. No evidence of pneumatosis intestinalis. Mild diffuse thickening of the bladder is unchanged. Probably mild cystitis. Case d/w Dr Chase for admission Surgic JAIRO Dr Paolo lombardo luna of consultation Dx Small Bowel Obstruction Fair Scribe Attestation: Documented by Brittney Tony, acting as a scribe for Vipin Caraballo MD. Provider Scribe Attestation: All medical record entries made by the Scribe were at my direction and personally dictated by me. I have reviewed the chart and agree that the record accurately reflects my personal performance of the history, physical exam, medical decision making, and the department course for this patient. I have also personally directed, reviewed, and agree with the discharge instructions and disposition. Disposition - Clinical Impression Clinical Impression: Small bowel obstruction Discussed With DrRichie: Ismael Chase (Dr Boone) - Disposition Disposition Time: 03:30 Condition: FAIR
[2018-10-29] MEDS ORDERED: Morphine 4 MG/ML VIAL ONE ×2 (00:42)
[2018-10-29 01:15] LABS: ALB/GLOB RATIO 1.3 (1.0-2.1); ALBUMIN 4.5 g/dL (3.5-5.0); ALT/SGPT 31 U/L (9-52); AST/SGOT 31 U/L (14-36); BLOOD UREA NITROGEN 11 mg/dl (7-17); CALCIUM 9.5 mg/dL (8.4-10.2); GFR NON-AFRICAN AMERICAN > 60; LIPASE 87 U/L (23-300)
[2018-10-29 01:16] LABS: SQUAMOUS EPITHIAL < 1 /hpf (0-5); URINE BACTERIA RARE (<OCC); URINE BILIRUBIN NEGATIVE (NEGATIVE); URINE BLOOD SMALL (NEGATIVE); URINE CLARITY SLIGHTY-CLOUDY (Clear); URINE COLOR YELLOW (YELLOW); URINE GLUCOSE (UA) NEG (NEGATIVE); URINE LEUKOCYTE ESTERASE TRACE Leu/uL (Negative); URINE PROTEIN NEGATIVE (NEGATIVE); URINE UROBILINOGEN 0.2-1.0 mg/dL (0.2-1.0)
[2018-10-29 01:23] LABS: BASO % 0.3 % (0.0-2.0); EOS # 0.1 K/uL (0.0-0.7); EOS % 1.4 % (0.0-4.0); HEMOGLOBIN 12.5 g/dL (12.0-16.0); LYMPH # 1.4 K/uL (1.0-4.3); LYMPH % 15.7 % (20.0-40.0); MEAN CELL VOLUME 90.4 fl (81.0-99.0); MEAN CORPUSCULAR HEMOGLOBIN 30.3 pg (27.0-31.0); MEAN CORPUSCULAR HGB CONC 33.6 g/dL (33.0-37.0); MEAN PLATELET VOLUME 10.1 fl (7.2-11.7); MONO # 0.5 K/uL (0.0-0.8); MONO % 5.7 % (0.0-10.0); NEUT # 6.8 K/uL (1.8-7.0); NEUT % 76.9 % (50.0-75.0); RBC 4.11 Mil/uL (3.80-5.20); RED CELL DISTRIBUTION WIDTH 14.2 % (11.5-14.5); WHITE BLOOD COUNT 8.8 K/uL (4.8-10.8)
[2018-10-29] MEDS ORDERED: Sodium Chloride 0.9% 50 ML IV ONE (01:34)
[2018-10-29] MEDS ORDERED: Iohexol 300 100 ML IJ ONE (01:34)
--- NOTE | 2018-10-29 04:11 | CP.PCM.HP ---
<Sultan Hodan - Last Filed: 10/29/18 05:07> History of Present Illness - History of Present Illness History of Present Illness: CC: Abdominal pain and vomiting HPI: 58 year old female with PMHx of colon CA s/p hemicolectomy, chemo and radiation in 2010 and GERD presents with complaints of sudden onset of mid abdominal pain, non-radiating, 10/10 started at 8 pm last night associated with nausea and 2 episodes of non-bloody non-bilious vomiting. Denies passing gas since then. Reports hx constipation and had last BM at 6 pm last night. Reports +shivering. Denies any fever, headache, dizziness or dysuria. In the ED, CT A/P shows interval appearance of moderate partial small bowel obstruction. ROS: All 12 systems reviewed and negative except as mentioned in HPI PMD: [facility] PMHx: Colon CA s/p dawit colectomy in 2010, GERD PSHx: Hemicolectomy, surveillance colonoscopy with polyp resection (Last colonoscopy on 04/23/[address] Kohli) Social hx: Denies smoking cigarettes, drinking EtOH or using illicit drugs Family hx: Denies any family hx of CA Allergies: NKDA Medications: Omeprazole 40 mg po daily, Centrum multivitamin and stool softeners prn Present on Admission - Present on Admission Any Indicators Present on Admission: No Review of Systems - Review of Systems All systems: reviewed and no additional remarkable complaints except Past Patient History - Past Medical History & Family History Past Medical History?: Yes - Past Social History Smoking Status: Never Smoked - CARDIAC Hx Cardiac Disorders: No - PULMONARY Hx Respiratory Disorders: No - NEUROLOGICAL Hx Neurological Disorder: No - HEENT Hx HEENT Problems: No - RENAL Hx Chronic Kidney Disease: No - ENDOCRINE/METABOLIC Hx Endocrine Disorders: No - HEMATOLOGICAL/ONCOLOGICAL Hx Human Immunodeficiency Virus (HIV): No - INTEGUMENTARY Hx Dermatological Problems: No - MUSCULOSKELETAL/RHEUMATOLOGICAL Hx Musculoskeletal Disorders: No - GASTROINTESTINAL Hx Gastritis: Yes - GENITOURINARY/GYNECOLOGICAL Hx Genitourinary Disorders: No - PSYCHIATRIC Hx Psychophysiologic Disorder: No Hx Emotional Abuse: No Hx Physical Abuse: No Hx Substance Use: No - SURGICAL HISTORY Hx Surgeries: Yes Hx Section: Yes Other/Comment: COLECTOMY - ANESTHESIA Hx Anesthesia: Yes Hx Anesthesia Reactions: No Hx Malignant Hyperthermia: No Meds Allergies/Adverse Reactions: Allergies Allergy/AdvReac Type Severity Reaction Status Date / Time No Known Allergies Allergy Verified 04/04/17 19:15 Physical Exam - Constitutional Appears: Non-toxic, Other (looks uncomforable due to pain) - Head Exam Head Exam: ATRAUMATIC, NORMOCEPHALIC - Eye Exam Eye Exam: Normal appearance - ENT Exam ENT Exam: Mucous Membranes Moist, Normal Oropharynx - Neck Exam Neck exam: Positive for: Normal Inspection - Respiratory Exam Respiratory Exam: Clear to Auscultation Bilateral, NORMAL BREATHING PATTERN. absent: Rhonchi, Wheezes - Cardiovascular Exam Cardiovascular Exam: REGULAR RHYTHM, +S1, +S2 - GI/Abdominal Exam GI & Abdominal Exam: Soft Additional comments: Hyperactive BS. Mild abdominal distention. Tender mid abdomen. No rebound or guarding. - Extremities Exam Extremities exam: Positive for: normal capillary refill, normal inspection, pedal pulses present. Negative for: calf tenderness, pedal edema - Neurological Exam Neurological exam: Alert, Oriented x3 - Psychiatric Exam Psychiatric exam: Normal Affect, Normal Mood - Skin Skin Exam: Normal Color, Warm Results - Vital Signs Recent Vital Signs: Last Vital Signs Temp 97.9 F 10/28/18 23:52 Pulse 73 10/28/18 23:52 Resp 18 10/28/18 23:52 BP 138/82 10/28/18 23:52 Pulse Ox 98 10/29/18 03:09 - Labs Result Diagrams: 10/29/18 00:55 10/29/18 00:53 Labs: Laboratory Results - last 24 hr 10/29/18 10/29/18 10/29/18 00:38 00:53 00:53 WBC RBC Hgb Hct MCV MCH MCHC RDW Plt Count MPV Neut % (Auto) Lymph % (Auto) [place] % (Auto) Eos % (Auto) Baso % (Auto) Neut # (Auto) Lymph # (Auto) [place] # (Auto) Eos # (Auto) Baso # (Auto) Sodium 136 Potassium 4.1 Chloride 100 Carbon Dioxide 30 Anion Gap 10 BUN 11 Creatinine 0.6 L Est GFR ( Amer) > 60 Est GFR (Non-Af Amer) > 60 Random Glucose 114 H Lactic Acid 1.1 Calcium 9.5 Total Bilirubin 0.8 AST 31 ALT 31 Alkaline Phosphatase 107 Total Protein 7.9 Albumin 4.5 Globulin 3.4 Albumin/Globulin Ratio 1.3 Lipase 87 Urine Color Yellow Urine Clarity Slighty-cloudy Urine pH 6.0 Ur Specific Neal 1.025 Urine Protein Negative Urine Glucose (UA) Neg Urine Ketones Negative Urine Blood Small Urine Nitrate Negative Urine Bilirubin Negative Urine Urobilinogen 0.2-1.0 Ur Leukocyte Esterase Trace Urine RBC (Auto) 7 H Urine Microscopic WBC 3 Ur Squamous Epith Cells < 1 Urine Bacteria Rare Hyaline Casts 3-5 H 10/29/18 00:55 WBC 8.8 D RBC 4.11 Hgb 12.5 Hct 37.1 MCV 90.4 MCH 30.3 MCHC 33.6 RDW 14.2 Plt Count 200 MPV 10.1 Neut % (Auto) 76.9 H Lymph % (Auto) 15.7 L [place] % (Auto) 5.7 Eos % (Auto) 1.4 Baso % (Auto) 0.3 Neut # (Auto) 6.8 Lymph # (Auto) 1.4 [place] # (Auto) 0.5 Eos # (Auto) 0.1 Baso # (Auto) 0.0 Sodium Potassium Chloride Carbon Dioxide Anion Gap BUN Creatinine Est GFR ( Amer) Est GFR (Non-Af Amer) Random Glucose Lactic Acid Calcium Total Bilirubin AST ALT Alkaline Phosphatase Total Protein Albumin Globulin Albumin/Globulin Ratio Lipase Urine Color Urine Clarity Urine pH Ur Specific Neal Urine Protein Urine Glucose (UA) Urine Ketones Urine Blood Urine Nitrate Urine Bilirubin Urine Urobilinogen Ur Leukocyte Esterase Urine RBC (Auto) Urine Microscopic WBC Ur Squamous Epith Cells Urine Bacteria Hyaline Casts Assessment & Plan - Assessment and Plan (Free Text) Plan: 58 year old female with PMHx of colon CA s/p hemicolectomy, chemo and radiation in 2010 and GERD presents with complaints of sudden onset of mid abdominal pain, non-radiating, 10/10 started at 8 pm last night associated with nausea and 2 episodes of non-bloody non-bilious vomiting. In the ED, CT A/P shows interval appearance of moderate partial small bowel obstruction. Patient is admitted for SBO. Plan: Small Bowel Obstruction -Hx colon CA s/p partial resection, chemo and radiation in 2010 -Afebrile with stable vitals -Wbc 8.8 -CT A/P: IMPRESSION: Interval appearance of moderate partial small bowel obstruction.Transition zone in the right lower quadrant without perforation or abscess formation. No evidence of pneumatosis intestinalis. -Surgery Consult -NPO -IVF LR @125 cc/hr -NG Tube placement -Zofran prn -Pain management: Patient prefers non-opioids. -F/U clinically with serial abdominal exam GERD -c/w Protonix 40 mg ivp daily DVT prophylaxis -SCDs Code Status -Full code Plan d/w Dr. Salvatore Pettit, [id number] <Ismael Chase - Last Filed: 10/29/18 06:20> Results - Vital Signs Recent Vital Signs: Last Vital Signs Temp 97.9 F 10/28/18 23:52 Pulse 73 10/28/18 23:52 Resp 18 10/28/18 23:52 BP 138/82 10/28/18 23:52 Pulse Ox 98 10/29/18 03:09 - Labs Result Diagrams: 10/29/18 00:55 10/29/18 00:53 Labs: Laboratory Results - last 24 hr 10/29/18 10/29/18 10/29/18 00:38 00:53 00:53 WBC RBC Hgb Hct MCV MCH MCHC RDW Plt Count MPV Neut % (Auto) Lymph % (Auto) [place] % (Auto) Eos % (Auto) Baso % (Auto) Neut # (Auto) Lymph # (Auto) [place] # (Auto) Eos # (Auto) Baso # (Auto) Sodium 136 Potassium 4.1 Chloride 100 Carbon Dioxide 30 Anion Gap 10 BUN 11 Creatinine 0.6 L Est GFR ( Amer) > 60 Est GFR (Non-Af Amer) > 60 Random Glucose 114 H Lactic Acid 1.1 Calcium 9.5 Total Bilirubin 0.8 AST 31 ALT 31 Alkaline Phosphatase 107 Total Protein 7.9 Albumin 4.5 Globulin 3.4 Albumin/Globulin Ratio 1.3 Lipase 87 Urine Color Yellow Urine Clarity Slighty-cloudy Urine pH 6.0 Ur Specific Neal 1.025 Urine Protein Negative Urine Glucose (UA) Neg Urine Ketones Negative Urine Blood Small Urine Nitrate Negative Urine Bilirubin Negative Urine Urobilinogen 0.2-1.0 Ur Leukocyte Esterase Trace Urine RBC (Auto) 7 H Urine Microscopic WBC 3 Ur Squamous Epith Cells < 1 Urine Bacteria Rare Hyaline Casts 3-5 H 10/29/18 00:55 WBC 8.8 D RBC 4.11 Hgb 12.5 Hct 37.1 MCV 90.4 MCH 30.3 MCHC 33.6 RDW 14.2 Plt Count 200 MPV 10.1 Neut % (Auto) 76.9 H Lymph % (Auto) 15.7 L [place] % (Auto) 5.7 Eos % (Auto) 1.4 Baso % (Auto) 0.3 Neut # (Auto) 6.8 Lymph # (Auto) 1.4 [place] # (Auto) 0.5 Eos # (Auto) 0.1 Baso # (Auto) 0.0 Sodium Potassium Chloride Carbon Dioxide Anion Gap BUN Creatinine Est GFR ( Amer) Est GFR (Non-Af Amer) Random Glucose Lactic Acid Calcium Total Bilirubin AST ALT Alkaline Phosphatase Total Protein Albumin Globulin Albumin/Globulin Ratio Lipase Urine Color Urine Clarity Urine pH Ur Specific Neal Urine Protein Urine Glucose (UA) Urine Ketones Urine Blood Urine Nitrate Urine Bilirubin Urine Urobilinogen Ur Leukocyte Esterase Urine RBC (Auto) Urine Microscopic WBC Ur Squamous Epith Cells Urine Bacteria Hyaline Casts Attending/Attestation - Attestation I have personally seen and examined this patient.: Yes I have fully participated in the care of the patient.: Yes I have reviewed all pertinent clinical information: Yes Notes (Text): 10/29/18 05:42 I saw, examined and discussed this patient with Dr Pettit. I agree with the assessment and plan outlined above. This is a 58 years old female with hx of partial Colon resection because of Colon cancer 6 years ago. She comes with Abdominal pain and vomiting. Adomen/Pelvis CT Findings: Interval appearance of moderate partial small bowel obstruction. Transition zone in the right lower quadrant without perforation or abscess formation. Surgery on consult. Continue conservative management of Partial small micheal obstruction with NG tube suctioning, Pain management, IV Fluids, IV PPI, Follow up Obstructive Series. Ismael Chase MD
--- NOTE | 2018-10-29 04:52 | CP.PCM.CON ---
History of Present Illness - History of Present Illness History of Present Illness: General Surgery Consult Note for Dr. Islas Consult: partial SBO CC: Abdominal pain HPI: 58 year old female, past medical history of colon cancer s/p partial colectomy in 2010, presents to the ED with abdominal pain and vomiting. Patient states the pain started last night at 8pm, 2 hours after eating dinner, and continued as a sharp constant pain. She vomited 2 times after, NBNB. No further episodes of vomiting or nausea. Patient has difficulty finding a comfortable position because of the pain. Currently rates pain as 8/10. Last bowel movement was yesterday and she has not passed gas since arrival to the hospital. Additionally complaining of increased urinary frequency. Denies fever, chills, nausea, diarrhea, SOB, chest pain, headaches, or dizziness. PMH: see above PSH: partial colectomy (sigmoid?) in 2010, c-sectionsx3 FH: noncontributory SH: denies tobacco, alcohol, drugs ALL: NKDA Meds: see MAR Review of Systems - Constitutional Constitutional: absent: Chills, Fever, Weight Loss - EENT Eyes: absent: Blurred Vision, Change in Vision Nose/Mouth/Throat: absent: Nasal Congestion, Nasal Discharge - Cardiovascular Cardiovascular: absent: Chest Pain, Dyspnea - Respiratory Respiratory: absent: Cough, Dyspnea - Gastrointestinal Gastrointestinal: Abdominal Pain. absent: Diarrhea, Nausea, Vomiting - Genitourinary Genitourinary: Urinary Frequency. absent: Dysuria - Musculoskeletal Musculoskeletal: absent: Back Pain, Neck Pain - Integumentary Integumentary: absent: Bleeding Lesions, Changing Lesions - Neurological Neurological: absent: Confusion, Dizziness - Psychiatric Psychiatric: absent: Anxiety, Depression Past Patient History - Past Medical History & Family History Past Medical History?: Yes - Past Social History Smoking Status: Never Smoked - CARDIAC Hx Cardiac Disorders: No - PULMONARY Hx Respiratory Disorders: No - NEUROLOGICAL Hx Neurological Disorder: No - HEENT Hx HEENT Problems: No - RENAL Hx Chronic Kidney Disease: No - ENDOCRINE/METABOLIC Hx Endocrine Disorders: No - HEMATOLOGICAL/ONCOLOGICAL Hx Human Immunodeficiency Virus (HIV): No - INTEGUMENTARY Hx Dermatological Problems: No - MUSCULOSKELETAL/RHEUMATOLOGICAL Hx Musculoskeletal Disorders: No - GASTROINTESTINAL Hx Gastritis: Yes - GENITOURINARY/GYNECOLOGICAL Hx Genitourinary Disorders: No - PSYCHIATRIC Hx Psychophysiologic Disorder: No Hx Emotional Abuse: No Hx Physical Abuse: No Hx Substance Use: No - SURGICAL HISTORY Hx Surgeries: Yes Hx Section: Yes Other/Comment: COLECTOMY - ANESTHESIA Hx Anesthesia: Yes Hx Anesthesia Reactions: No Hx Malignant Hyperthermia: No Meds Allergies/Adverse Reactions: Allergies Allergy/AdvReac Type Severity Reaction Status Date / Time No Known Allergies Allergy Verified 04/04/17 19:15 - Medications Medications: Current Medications Sodium Chloride (Sodium Chloride 0.9%) 1,000 mls @ 150 mls/hr IV .Q6H40M STA Stop: 10/29/18 10:30 Last Admin: 10/29/18 04:36 Dose: 150 mls/hr Lactated Ringer's (Lactated Ringer's) 1,000 mls @ 125 mls/hr IV .Q8H [facility] Ketorolac Tromethamine (Toradol) 15 mg IVP Q6 PRN PRN Reason: Pain, Mild (1-3) Ketorolac Tromethamine (Toradol) 15 mg IVP Q6 PRN PRN Reason: Pain, moderate (4-7) Ketorolac Tromethamine (Toradol) 30 mg IVP Q6 PRN PRN Reason: Pain, severe (8-10) Morphine Sulfate (Morphine) 4 mg IVP Q6 PRN PRN Reason: Pain, severe (8-10) Morphine Sulfate (Morphine) 2 mg IVP Q6 PRN PRN Reason: Pain, moderate (4-7) Ondansetron HCl (Zofran Inj) 4 mg IVP Q6 PRN PRN Reason: Nausea/Vomiting Physical Exam - Constitutional Appears: Non-toxic, No Acute Distress - Head Exam Head Exam: ATRAUMATIC, NORMAL INSPECTION, NORMOCEPHALIC - Eye Exam Eye Exam: EOMI - ENT Exam ENT Exam: Mucous Membranes Moist - Respiratory Exam Respiratory Exam: NORMAL BREATHING PATTERN. absent: Respiratory Distress - Cardiovascular Exam Cardiovascular Exam: REGULAR RHYTHM - GI/Abdominal Exam GI & Abdominal Exam: Distended, Tenderness. absent: Guarding, Rebound, Rigid - Rectal Exam Rectal Exam: Hemorrhoids, NORMAL INSPECTION Additional comments: Tight sphincter tone - Neurological Exam Neurological exam: Alert, Oriented x3 - Psychiatric Exam Psychiatric exam: Normal Affect, Normal Mood - Skin Skin Exam: Dry, Intact, Normal Color, Warm Results - Vital Signs Recent Vital Signs: Last Vital Signs Temp 97.9 F 12/12/18 23:52 Pulse 73 10/28/18 23:52 Resp 18 10/28/18 23:52 BP 138/82 10/28/18 23:52 Pulse Ox 98 10/29/18 03:09 - Labs Result Diagrams: 10/29/18 00:55 10/29/18 00:53 Labs: Laboratory Results - last 24 hr 10/29/18 10/29/18 10/29/18 00:38 00:53 00:53 WBC RBC Hgb Hct MCV MCH MCHC RDW Plt Count MPV Neut % (Auto) Lymph % (Auto) [place] % (Auto) Eos % (Auto) Baso % (Auto) Neut # (Auto) Lymph # (Auto) [place] # (Auto) Eos # (Auto) Baso # (Auto) Sodium 136 Potassium 4.1 Chloride 100 Carbon Dioxide 30 Anion Gap 10 BUN 11 Creatinine 0.6 L Est GFR ( Amer) > 60 Est GFR (Non-Af Amer) > 60 Random Glucose 114 H Lactic Acid 1.1 Calcium 9.5 Total Bilirubin 0.8 AST 31 ALT 31 Alkaline Phosphatase 107 Total Protein 7.9 Albumin 4.5 Globulin 3.4 Albumin/Globulin Ratio 1.3 Lipase 87 Urine Color Yellow Urine Clarity Slighty-cloudy Urine pH 6.0 Ur Specific [place] 1.025 Urine Protein Negative Urine Glucose (UA) Neg Urine Ketones Negative Urine Blood Small Urine Nitrate Negative Urine Bilirubin Negative Urine Urobilinogen 0.2-1.0 Ur Leukocyte Esterase Trace Urine RBC (Auto) 7 H Urine Microscopic WBC 3 Ur Squamous Epith Cells < 1 Urine Bacteria Rare Hyaline Casts 3-5 H 10/29/18 00:55 WBC 8.8 D RBC 4.11 Hgb 12.5 Hct 37.1 MCV 90.4 MCH 30.3 MCHC 33.6 RDW 14.2 Plt Count 200 MPV 10.1 Neut % (Auto) 76.9 H Lymph % (Auto) 15.7 L [place] % (Auto) 5.7 Eos % (Auto) 1.4 Baso % (Auto) 0.3 Neut # (Auto) 6.8 Lymph # (Auto) 1.4 [place] # (Auto) 0.5 Eos # (Auto) 0.1 Baso # (Auto) 0.0 Sodium Potassium Chloride Carbon Dioxide Anion Gap BUN Creatinine Est GFR ( Amer) Est GFR (Non-Af Amer) Random Glucose Lactic Acid Calcium Total Bilirubin AST ALT Alkaline Phosphatase Total Protein Albumin Globulin Albumin/Globulin Ratio Lipase Urine Color Urine Clarity Urine pH Ur Specific [place] Urine Protein Urine Glucose (UA) Urine Ketones Urine Blood Urine Nitrate Urine Bilirubin Urine Urobilinogen Ur Leukocyte Esterase Urine RBC (Auto) Urine Microscopic WBC Ur Squamous Epith Cells Urine Bacteria Hyaline Casts Assessment & Plan - Assessment and Plan (Free Text) Assessment: 58F w/ abdominal pain 2/2 partial SBO Plan: NPO IVF Analgesics and antiemetics NGT placed low, continuous Continue to monitor NGT output Continue to monitor vitals Serial abdominal exams AM labs Further recommendations per Dr. Janel Boone PGY1
--- NOTE | 2018-10-29 09:31 | RAD ---
Date of service: 10/29/2018 PROCEDURE: Radiographs of the chest and abdomen (obstructive series) HISTORY: Evaluation of Partial SBO COMPARISON: No prior. TECHNIQUE: AP radiograph of the chest, with upright and supine radiographs of the abdomen. FINDINGS: CHEST: Lungs: Clear. Cardiovascular: Normal size heart. No pulmonary vascular congestion. No aortic atherosclerotic calcification present Pleura: No pleural fluid. No pneumothorax. Other findings: None. ABDOMEN AND PELVIS: Bowel: Proximal to mid small bowel is increasingly distended compared to prior abdomen pelvis CT 10/29/2018 with air-fluid levels present. Consider developing obstruction either partial or complete. Relatively prominent retained fecal material to remains appreciated throughout the large bowel with gas. Free air: None. Bones: Unremarkable. Other findings: Interval NG tube deployment with tip turning at the left upper quadrant abdomen, likely in gastric viscus. IMPRESSION: Worsening pattern of potential distal small-bowel obstruction with large-bowel unchanged in appearance, relatively prominently distended with retained fecal material. No free intra peritoneal gas collection at this time. Clinically correlate as worsening bowel obstruction or developing ileus remain in the differential diagnosis. Interval NG tube deployment.
--- NOTE | 2018-10-29 10:52 | CT ---
Date of service: 10/29/2018 PROCEDURE: CT Abdomen and Pelvis with contrast HISTORY: abd pain/NV, hx colon surgery COMPARISON: 09/29/2017 TECHNIQUE: Intravenous contrast dose: 85 cc Omnipaque 300. Radiation dose: Total exam DLP = 292.52 mGy-cm. This CT exam was performed using one or more of the following dose reduction techniques: Automated exposure control, adjustment of the mA and/or kV according to patient size, and/or use of iterative reconstruction technique. FINDINGS: LOWER THORAX: Unremarkable. LIVER: Unremarkable. No gross lesion or ductal dilatation. GALLBLADDER AND BILE DUCTS: Unremarkable. PANCREAS: Unremarkable. No gross lesion or ductal dilatation. SPLEEN: Unremarkable. ADRENALS: Unremarkable. No mass. KIDNEYS AND URETERS: Unremarkable. No hydronephrosis. No solid mass. VASCULATURE: Unremarkable. No aortic aneurysm. No atherosclerotic calcification or mural plaque present. BOWEL: Earlier incomplete small bowel obstruction. Dilated proximal and mid loops of small bowel apparent. The point of obstruction is likely in the pelvis anteriorly. Beyond this ileum and terminal ileum/ileocecal valve region within normal limits. Constipation without fecal impaction or obstruction. Surgical suture line in the rectosigmoid region unremarkable and unchanged compared to the prior study. APPENDIX: Normal appendix. PERITONEUM: Unremarkable. No free fluid. No free air. LYMPH NODES: Unremarkable. No enlarged lymph nodes. BLADDER: Unremarkable. REPRODUCTIVE: Unremarkable. BONES: No acute fracture. OTHER FINDINGS: None. IMPRESSION: Early/incomplete small bowel obstruction. No drainable collection, mass lesion or free air. Stable postoperative changes rectosigmoid region. Additional benign and/or incidental findings described above. Concordant results (preliminary interpretation) provided by [employer]. Procedure Completed: 01:50. Preliminary Report: Dictated and Authenticated: 03:07. Final Interpretation: 10:47. October 29, 2018
[2018-10-29] MEDS: Lactated Ringer's 1,000 ML IV SCH ×3 (12:53→21:04)
[2018-10-29] MEDS ORDERED: Phenol 1.4% Throat Spray MT PRN (17:02)
[2018-10-29] MEDS ORDERED: Morphine 4 MG/ML VIAL IVP PRN (19:00)
[2018-10-29] MEDS ORDERED: Benzocaine/Menthol (Cepacol) Lozenge PO PRN (19:37)
--- NOTE | 2018-10-30 00:26 | CARD ---
APPROVED REPORT Date of service: 10/29/2018 EKG Measurement Heart [id number] <Conclusion> Normal sinus rhythm Low voltage QRS Borderline ECG
[2018-10-30] MEDS: Morphine 4 MG/ML VIAL IVP PRN ×2 (03:06→12:15)
[2018-10-30] MEDS: Lactated Ringer's 1,000 ML IV SCH ×4 (05:50→20:30)
[2018-10-30 07:26] LABS: BASO % 0.2 % (0.0-2.0); EOS # 0.1 K/uL (0.0-0.7); EOS % 1.3 % (0.0-4.0); LYMPH # 0.9 K/uL (1.0-4.3); LYMPH % 14.2 % (20.0-40.0); MEAN CELL VOLUME 91.1 fl (81.0-99.0); MEAN CORPUSCULAR HEMOGLOBIN 30.6 pg (27.0-31.0); MEAN CORPUSCULAR HGB CONC 33.6 g/dL (33.0-37.0); MONO # 0.4 K/uL (0.0-0.8); MONO % 6.1 % (0.0-10.0); NEUT # 5.2 K/uL (1.8-7.0); NEUT % 78.2 % (50.0-75.0); NRBC % 0.1 % (0.0-0.0); RBC 3.58 Mil/uL (3.80-5.20); RED CELL DISTRIBUTION WIDTH 14.4 % (11.5-14.5); WHITE BLOOD COUNT 6.6 K/uL (4.8-10.8)
[2018-10-30 07:35] LABS: BLOOD UREA NITROGEN 10 mg/dl (7-17); CALCIUM 8.5 mg/dL (8.4-10.2); GFR NON-AFRICAN AMERICAN > 60
--- NOTE | 2018-10-30 08:56 | CP.PCM.PN ---
Subjective - Date & Time of Evaluation Date of Evaluation: 10/30/18 Time of Evaluation: 08:54 - Subjective Subjective: General Surgery Progress Note for Dr. Islas 58F seen and evaluated at bedside this morning. No acute events overnight. Mild abdominal pain. NGT in place. Patient had multiple bowel movements and is passing flatus. Voiding and ambulating. Denies f/c, n/v/d, SOB, CP, or urinary symptoms. Objective - Vital Signs/Intake and Output Vital Signs (last 24 hours): Temp Pulse Resp BP Pulse Ox 97.9 F 79 18 104/56 L 96 10/30/18 08:52 10/30/18 08:52 10/30/18 08:52 10/30/18 08:52 10/30/18 08:52 Intake and Output: 10/30/18 10/30/18 06:59 18:59 Intake Total 1500 Output Total 350 Balance 1150 - Medications Medications: Current Medications Benzocaine/Menthol (Cepacol Sore Throat) 1 edy PO Q3 PRN PRN Reason: Sore Throat Last Admin: 10/29/18 21:02 Dose: 1 edy Bisacodyl (Dulcolax) 10 mg [place] DAILY [facility] Last Admin: 10/30/18 08:38 Dose: 10 mg Lactated Ringer's (Lactated Ringer's) 1,000 mls @ 125 mls/hr IV .Q8H [facility] Last Admin: 10/30/18 05:50 Dose: 125 mls/hr Ketorolac Tromethamine (Toradol) 15 mg IVP Q6 PRN PRN Reason: Pain, Mild (1-3) Last Admin: 10/29/18 09:11 Dose: 15 mg Ketorolac Tromethamine (Toradol) 15 mg IVP Q6 PRN PRN Reason: Pain, moderate (4-7) Ketorolac Tromethamine (Toradol) 30 mg IVP Q6 PRN PRN Reason: Pain, severe (8-10) Morphine Sulfate (Morphine) 4 mg IVP Q6 PRN PRN Reason: Pain, severe (8-10) Last Admin: 10/30/18 03:06 Dose: 4 mg Morphine Sulfate (Morphine) 2 mg IVP Q6 PRN PRN Reason: Pain, moderate (4-7) Last Admin: 10/29/18 19:02 Dose: 2 mg Ondansetron HCl (Zofran Inj) 4 mg IVP Q4 PRN PRN Reason: Nausea/Vomiting Last Admin: 10/30/18 07:43 Dose: 4 mg Pantoprazole Sodium (Protonix Inj) 40 mg IVP DAILY [facility] Last Admin: 10/30/18 08:38 Dose: 40 mg Phenol/Menthol (Phenaseptic 1.4% Throat [place]) 1 spry MT Q2 PRN PRN Reason: Sore Throat Last Admin: 10/29/18 20:59 Dose: 1 % - Labs Labs: 10/30/18 07:00 10/30/18 07:00 - Constitutional Appears: Well, Non-toxic, No Acute Distress - Head Exam Head Exam: ATRAUMATIC, NORMAL INSPECTION, NORMOCEPHALIC - Eye Exam Eye Exam: EOMI - ENT Exam ENT Exam: Mucous Membranes Dry - Respiratory Exam Respiratory Exam: NORMAL BREATHING PATTERN. absent: Respiratory Distress - Cardiovascular Exam Cardiovascular Exam: REGULAR RHYTHM - GI/Abdominal Exam GI & Abdominal Exam: Soft, Normal Bowel Sounds. absent: Distended, Tenderness Additional comments: 350cc from NGT overnight - Neurological Exam Neurological Exam: Alert, Awake - Psychiatric Exam Psychiatric exam: Normal Affect, Normal Mood - Skin Skin Exam: Dry, Intact, Normal Color, Warm Assessment and Plan - Assessment and Plan (Free Text) Assessment: 58F w/ partial SBO, improving Plan: DC NGT Start CLD Encourage ambulation and OOBTC Antiemetics and analgesics as needed Continue to monitor vitals Further recommendations per Dr. Janel Boone PGY1
--- NOTE | 2018-10-30 10:46 | CP.PCM.PN ---
Subjective - Date & Time of Evaluation Date of Evaluation: 10/30/18 Time of Evaluation: 08:45 - Subjective Subjective: Patient seen and examined at bedside. NGT discontinued. Patient states that abdominal pain persists, but improving. Continues to c/o baldev sea. Denies vomiting. Patient endorses having a BM today. Reports being usually constipated at home. Objective - Vital Signs/Intake and Output Vital Signs (last 24 hours): Temp Pulse Resp BP Pulse Ox 97.9 F 79 18 104/56 L 96 10/30/18 08:52 10/30/18 08:52 10/30/18 08:52 10/30/18 08:52 10/30/18 08:52 Intake and Output: 10/30/18 10/30/18 06:59 18:59 Intake Total 1500 Output Total 350 Balance 1150 - Medications Medications: Current Medications Benzocaine/Menthol (Cepacol Sore Throat) 1 edy PO Q3 PRN PRN Reason: Sore Throat Last Admin: 10/29/18 21:02 Dose: 1 edy Bisacodyl (Dulcolax) 10 mg [place] DAILY [facility] Last Admin: 10/30/18 08:38 Dose: 10 mg Lactated Ringer's (Lactated Ringer's) 1,000 mls @ 125 mls/hr IV .Q8H [facility] Last Admin: 10/30/18 05:50 Dose: 125 mls/hr Ketorolac Tromethamine (Toradol) 15 mg IVP Q6 PRN PRN Reason: Pain, Mild (1-3) Last Admin: 10/29/18 09:11 Dose: 15 mg Ketorolac Tromethamine (Toradol) 15 mg IVP Q6 PRN PRN Reason: Pain, moderate (4-7) Ketorolac Tromethamine (Toradol) 30 mg IVP Q6 PRN PRN Reason: Pain, severe (8-10) Morphine Sulfate (Morphine) 4 mg IVP Q6 PRN PRN Reason: Pain, severe (8-10) Last Admin: 10/30/18 03:06 Dose: 4 mg Morphine Sulfate (Morphine) 2 mg IVP Q6 PRN PRN Reason: Pain, moderate (4-7) Last Admin: 10/29/18 19:02 Dose: 2 mg Ondansetron HCl (Zofran Inj) 4 mg IVP Q4 PRN PRN Reason: Nausea/Vomiting Last Admin: 10/30/18 07:43 Dose: 4 mg Pantoprazole Sodium (Protonix Inj) 40 mg IVP DAILY [facility] Last Admin: 10/30/18 08:38 Dose: 40 mg Phenol/Menthol (Phenaseptic 1.4% Throat [place]) 1 spry MT Q2 PRN PRN Reason: Sore Throat Last Admin: 10/29/18 20:59 Dose: 1 % - Labs Labs: 10/30/18 07:00 10/30/18 07:00 - Constitutional Appears: No Acute Distress - Respiratory Exam Respiratory Exam: Clear to Ausculation Bilateral, NORMAL BREATHING PATTERN - Cardiovascular Exam Cardiovascular Exam: REGULAR RHYTHM, +S1, +S2 - GI/Abdominal Exam GI & Abdominal Exam: Soft, Tenderness, Normal Bowel Sounds Assessment and Plan - Assessment and Plan (Free Text) Assessment: 58 year old female with PMHx of colon CA s/p hemicolectomy, chemo and radiation in 2010 and GERD presents with complaints of sudden onset of mid abdominal pain, non-radiating, 10/10 started at 8 pm last night associated with nausea and 2 episodes of non-bloody non-bilious vomiting. In the ED, CT A/P shows interval appearance of moderate partial small bowel obstruction. Patient is admitted for SBO. Plan: Small Bowel Obstruction -Hx colon CA s/p partial resection, chemo and radiation in 2010 -Afebrile with stable vitals -Wbc 8.8 -CT A/P: IMPRESSION: Interval appearance of moderate partial small bowel obstruction.Transition zone in the right lower quadrant without perforation or abscess formation. No evidence of pneumatosis intestinalis. -Surgery Consult; appreciate recs -Liquid diet, advance as tolerated -continue IVF LR @125 cc/hr -NG Tube placement discontinued -Zofran prn -Pain management: Patient prefers non-opioids. -F/U clinically with serial abdominal exam GERD -c/w Protonix 40 mg ivp daily DVT prophylaxis -SCDs Code Status -Full code
--- NOTE | 2018-10-31 06:27 | CP.PCM.PN ---
Subjective - Date & Time of Evaluation Date of Evaluation: 10/31/18 Time of Evaluation: 06:25 - Subjective Subjective: SURGERY NOTE FOR DR WRIGHT 58F seen and examined at bedside. No acute events overnight. Patient NGT removed and tolerating CLD. Patient passing flatus and having bowel movements. Objective - Vital Signs/Intake and Output Vital Signs (last 24 hours): Temp Pulse Resp BP Pulse Ox 98.2 F 75 19 94/52 L 96 10/31/18 01:03 10/31/18 01:03 10/31/18 01:03 10/31/18 01:03 10/31/18 01:03 - Medications Medications: Current Medications Benzocaine/Menthol (Cepacol Sore Throat) 1 edy PO Q3 PRN PRN Reason: Sore Throat Last Admin: 10/29/18 21:02 Dose: 1 edy Bisacodyl (Dulcolax) 10 mg [place] DAILY [facility] Last Admin: 10/30/18 08:38 Dose: 10 mg Lactated Ringer's (Lactated Ringer's) 1,000 mls @ 125 mls/hr IV .Q8H [facility] Last Admin: 10/30/18 20:30 Dose: Not Given Ketorolac Tromethamine (Toradol) 15 mg IVP Q6 PRN PRN Reason: Pain, Mild (1-3) Last Admin: 10/29/18 09:11 Dose: 15 mg Ketorolac Tromethamine (Toradol) 15 mg IVP Q6 PRN PRN Reason: Pain, moderate (4-7) Ketorolac Tromethamine (Toradol) 30 mg IVP Q6 PRN PRN Reason: Pain, severe (8-10) Morphine Sulfate (Morphine) 4 mg IVP Q6 PRN PRN Reason: Pain, severe (8-10) Last Admin: 10/30/18 12:15 Dose: 4 mg Morphine Sulfate (Morphine) 2 mg IVP Q6 PRN PRN Reason: Pain, moderate (4-7) Last Admin: 10/29/18 19:02 Dose: 2 mg Ondansetron HCl (Zofran Inj) 4 mg IVP Q4 PRN PRN Reason: Nausea/Vomiting Last Admin: 10/30/18 07:43 Dose: 4 mg Pantoprazole Sodium (Protonix Inj) 40 mg IVP DAILY [facility] Last Admin: 10/30/18 08:38 Dose: 40 mg Phenol/Menthol (Phenaseptic 1.4% Throat [place]) 1 spry MT Q2 PRN PRN Reason: Sore Throat Last Admin: 10/29/18 20:59 Dose: 1 % - Labs Labs: 10/30/18 07:00 10/30/18 07:00 - Constitutional Appears: Non-toxic, No Acute Distress - Respiratory Exam Respiratory Exam: Clear to Ausculation Bilateral, NORMAL BREATHING PATTERN - Cardiovascular Exam Cardiovascular Exam: REGULAR RHYTHM, +S1, +S2 - GI/Abdominal Exam GI & Abdominal Exam: Soft. absent: Distended, Firm, Guarding, Rigid, Tenderness, Rebound - Extremities Exam Extremities Exam: absent: Pedal Edema, Tenderness - Neurological Exam Neurological Exam: Alert, Awake Assessment and Plan - Assessment and Plan (Free Text) Assessment: 58F with resolving SBO Plan: - advance diet as tolerated - serial abdominal exams - continue to monitor bowel function Further recs discuss with Dr. Janel Mora, PGY3
[2018-10-31 06:41] LABS: HEMOGLOBIN 10.1 g/dL (12.0-16.0); MEAN CELL VOLUME 91.8 fl (81.0-99.0); MEAN CORPUSCULAR HEMOGLOBIN 30.4 pg (27.0-31.0); MEAN CORPUSCULAR HGB CONC 33.2 g/dL (33.0-37.0); RBC 3.32 Mil/uL (3.80-5.20); RED CELL DISTRIBUTION WIDTH 14.3 % (11.5-14.5); WHITE BLOOD COUNT 4.2 K/uL (4.8-10.8)
[2018-10-31 06:50] LABS: BLOOD UREA NITROGEN 4 mg/dl (7-17); CALCIUM 8.7 mg/dL (8.4-10.2); GFR NON-AFRICAN AMERICAN > 60
[2018-10-31 08:30] VITALS: BP 96/57; PULSE 65; RESP 18; TEMP 98.5; O2SAT 94
--- NOTE | 2018-10-31 14:40 | CP.PCM.DIS ---
Provider - Provider Date of Admission: 10/29/18 03:08 Attending physician: Ismael Chase Consults: 10/29/18 03:25 Surgical [General Surgery Consult] Stat Comment: Consulting Provider: Chad Islas Consulting Physician: Chad Islas Reason for Consult: SBO Time Spent in preparation of Discharge (in minutes): 25 Diagnosis - Discharge Diagnosis (1) Partial small bowel obstruction Status: Acute Comment: condition improved. able to pass gas and small amount of stool (very small amount of oral intake the past 2-3 days) Hospital Course - Lab Results Lab Results: Most Recent Lab Values WBC 4.2 K/uL (4.8-10.8) L 10/31/18 05:30 RBC 3.32 Mil/uL (3.80-5.20) L 10/31/18 05:30 Hgb 10.1 g/dL (12.0-16.0) L 10/31/18 05:30 Hct 30.5 % (34.0-47.0) L 10/31/18 05:30 MCV 91.8 fl (81.0-99.0) 10/31/18 05:30 MCH 30.4 pg (27.0-31.0) 10/31/18 05:30 MCHC 33.2 g/dL (33.0-37.0) 10/31/18 05:30 RDW 14.3 % (11.5-14.5) 10/31/18 05:30 Plt Count 162 K/uL (130-400) 10/31/18 05:30 MPV 10.0 fl (7.2-11.7) 10/30/18 07:00 Neut % (Auto) 78.2 % (50.0-75.0) H 10/30/18 07:00 Lymph % (Auto) 14.2 % (20.0-40.0) L 10/30/18 07:00 Dillon % (Auto) 6.1 % (0.0-10.0) 10/30/18 07:00 Eos % (Auto) 1.3 % (0.0-4.0) 10/30/18 07:00 Baso % (Auto) 0.2 % (0.0-2.0) 10/30/18 07:00 Neut # (Auto) 5.2 K/uL (1.8-7.0) 10/30/18 07:00 Lymph # (Auto) 0.9 K/uL (1.0-4.3) L 10/30/18 07:00 Dillon # (Auto) 0.4 K/uL (0.0-0.8) 10/30/18 07:00 Eos # (Auto) 0.1 K/uL (0.0-0.7) 10/30/18 07:00 Baso # (Auto) 0.0 K/uL (0.0-0.2) 10/30/18 07:00 Sodium 141 mmol/l (132-148) 10/31/18 05:30 Potassium 3.8 MMOL/L (3.6-5.0) 10/31/18 05:30 Chloride 106 mmol/L (98-107) 10/31/18 05:30 Carbon Dioxide 32 mmol/L (22-30) H 10/31/18 05:30 Anion Gap 7 (10-20) L 10/31/18 05:30 BUN 4 mg/dl (7-17) L 10/31/18 05:30 Creatinine 0.6 mg/dl (0.7-1.2) L 10/31/18 05:30 Est GFR ( Amer) > 60 10/31/18 05:30 Est GFR (Non-Af Amer) > 60 10/31/18 05:30 Random Glucose 94 mg/dL (65-105) 10/31/18 05:30 Lactic Acid 1.1 MMOL/L (0.7-2.1) 10/29/18 00:53 Calcium 8.7 mg/dL (8.4-10.2) 10/31/18 05:30 Total Bilirubin 0.8 mg/dl (0.2-1.3) 10/29/18 00:53 AST 31 U/L (14-36) 10/29/18 00:53 ALT 31 U/L (9-52) 10/29/18 00:53 Alkaline Phosphatase 107 U/L (38-126) 10/29/18 00:53 Total Protein 7.9 G/DL (6.3-8.2) 10/29/18 00:53 Albumin 4.5 g/dL (3.5-5.0) 10/29/18 00:53 Globulin 3.4 gm/dL (2.2-3.9) 10/29/18 00:53 Albumin/Globulin Ratio 1.3 (1.0-2.1) 10/29/18 00:53 Lipase 87 U/L (23-300) 10/29/18 00:53 Urine Color Yellow (YELLOW) 10/29/18 00:38 Urine Clarity Slighty-cloudy (Clear) 10/29/18 00:38 Urine pH 6.0 (5.0-8.0) 10/29/18 00:38 Ur Specific [place] 1.025 (1.003-1.030) 10/29/18 00:38 Urine Protein Negative mg/dL (NEGATIVE) 10/29/18 00:38 Urine Glucose (UA) Neg mg/dL (NEGATIVE) 10/29/18 00:38 Urine Ketones Negative mg/dL (NEGATIVE) 10/29/18 00:38 Urine Blood Small (NEGATIVE) 10/29/18 00:38 Urine Nitrate Negative (NEGATIVE) 10/29/18 00:38 Urine Bilirubin Negative (NEGATIVE) 10/29/18 00:38 Urine Urobilinogen 0.2-1.0 mg/dL (0.2-1.0) 10/29/18 00:38 Ur Leukocyte Esterase Trace Damián/uL (Negative) 10/29/18 00:38 Urine RBC (Auto) 7 /hpf (0-3) H 10/29/18 00:38 Urine Microscopic WBC 3 /hpf (0-5) 10/29/18 00:38 Ur Squamous Epith Cells < 1 /hpf (0-5) 10/29/18 00:38 Urine Bacteria Rare (<OCC) 10/29/18 00:38 Hyaline Casts 3-5 /hpf (0-2) H 10/29/18 00:38 - Hospital Course Hospital Course: 58 yo female with history of Colon Ca post hemicolectomy with chemotherapy and radiation in 2010 and GERD admitted because of abdominal pain associated with nausea and vomiting. CT scan appeared to have partial small bowel obstruction. NGT was inserted for decompression and did well. After NGT was pulled out patient was able to tolerate oral intake and able to pass out small amount of stool and gas. There was no recurrence of abdominal pain and nausea. Patient discharged in stable condition. Discharge Exam - Head Exam Head Exam: ATRAUMATIC, NORMAL INSPECTION, NORMOCEPHALIC - Eye Exam Eye Exam: absent: Scleral icterus - ENT Exam ENT Exam: Mucous Membranes Moist - Respiratory Exam Respiratory Exam: absent: Rales, Rhonchi, Wheezes, Respiratory Distress - Cardiovascular Exam Cardiovascular Exam: REGULAR RHYTHM, +S1, +S2 - GI/Abdominal Exam GI & Abdominal Exam: Soft. absent: Tenderness - Rectal Exam Rectal Exam: Deferred - Neurological Exam Neurological exam: Alert, Oriented x3 - Psychiatric Exam Psychiatric exam: Normal Affect - Skin Skin Exam: Dry, Intact Discharge Plan - Discharge Medications Prescriptions: Aluminum Hydroxide/Magnesium H [Maalox 30 ml] 30 ml PO Q6 PRN #120 udc PRN Reason: Dyspepsia Docusate Sodium [Colace] 100 mg PO BID #20 capsule - Follow Up Plan Condition: IMPROVED Disposition: HOME/ ROUTINE Instructions: Small Bowel Obstruction Additional Instructions: Please follow up with your surgeon, Dr. Islas, selena 11/05/18 at his [place] office. Referrals: Chad Islas MD [Staff Provider] -
== END 2018-10-31 17:47 | disposition home or self-care (01) | DRG 247 ==
LOC: H.ER 23:46 → H.ERHOLD 10-29 03:08 → H.MEDSURG1 10-29 15:24
PROVIDERS: ADMIT Internal Medicine; ATTEND Internal Medicine
PROC: 0D9670Z Drainage of Stomach with Drainage Device, Via Natural or Artificial Opening (ICD-10-PCS; principal; 2018-10-29)
DX: K56.600 Partial intestinal obstruction, unspecified as to cause (principal); K21.9 Gastro-esophageal reflux disease without esophagitis; K29.70 Gastritis, unspecified, without bleeding; Z85.038 Personal history of other malignant neoplasm of large intestine; Z92.21 Personal history of antineoplastic chemotherapy; Z92.3 Personal history of irradiation